=== PATIENT | male | born 1960 | race Caucasian/White ===

== ENCOUNTER 2017-09-03 05:51 | Observation (INO) | payer BC ==
[2017-09-03 06:23] LABS: Basophils % (A) 1 %; Eosinophils # (A) 0.2 k/uL (0-0.7); Eosinophils % (A) 4 %; HCT 33.9 % (39.0-53.0); Lymphocytes # (A) 0.9 k/uL (1.0-4.8); Lymphocytes % (A) 23 %; MCH 26.5 pg (25.0-35.0); MCHC 32.4 g/dL (31.0-37.0); MCV 81.7 fL (80.0-100.0); Mean Platelet Volume 6.5; Monocytes # (A) 0.2 k/uL (0-1.0); Monocytes % (A) 5 %; Neutrophils # (A) 2.7 k/uL (1.3-7.7); Neutrophils % (A) 65 %; Platelet Count 255 k/uL (150-450); RBC 4.16 m/uL (4.30-5.90); RDW 13.3 % (11.5-15.5); WBC 4.1 k/uL (3.8-10.6)
[2017-09-03] MEDS ORDERED: ASPIRIN 81 MG PO STA (06:27)
[2017-09-03] MEDS ORDERED: NITROGLYCERIN SL TABS 0.4 MG TAB SUBLINGUAL STA ×3 (06:27)
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
[2017-09-03 06:39] LABS: Partial Thromboplastin Time 26.6 sec (22.0-30.0); Prothrombin Time 9.7 sec (9.0-12.0)
[2017-09-03 06:42] LABS: Albumin 3.8 g/dL (3.5-5.0); Calcium 9.3 mg/dL (8.4-10.2); Potassium 4.6 mmol/L (3.5-5.1); Total Bilirubin 0.5 mg/dL (0.2-1.3); Total Protein 7.5 g/dL (6.3-8.2)
[2017-09-03 06:45] LABS: Creatine Kinase 129 U/L (55-170)
[2017-09-03 06:51] LABS: D-Dimer 1.95 mg/L FEU (<0.60)
[2017-09-03] MEDS ORDERED: RX INFO: IV CONTRAST WAS GIVEN 1 EACH MISC MISCELLANE PRN (06:52)
[2017-09-03] MEDS ORDERED: SODIUM CHLORIDE 0.9% 500 ML IV STA (06:53)
[2017-09-03 06:58] LABS: Creatine Kinase MB 0.4 ng/mL (0.0-2.4); Troponin I <0.012 ng/mL (0.000-0.034)
--- NOTE | 2017-09-03 07:03 | XR ---
EXAM: XR Chest, 2 Views CLINICAL HISTORY: Reason: difficulty breathing TECHNIQUE: Frontal and lateral views of the chest. COMPARISON: No relevant prior studies available. FINDINGS: Lungs: Unremarkable. No consolidation. Pleural space: Left lower lung pleural based density not well evaluated on the lateral view, possible small pleural effusion. No pneumothorax. Heart: Unremarkable. No cardiomegaly. Mediastinum: Unremarkable. Bones/joints: Unremarkable. IMPRESSION: Left lower lung pleural based density not well evaluated on the lateral view, possible small pleural effusion.
--- NOTE | 2017-09-03 08:07 | CT ---
EXAMINATION TYPE: CT angio chest DATE OF EXAM: 09/03/2017 COMPARISON: Radiograph same day HISTORY: 57-year-old male SOB, back pain, elevated d dimer TECHNIQUE: Contiguous axial scanning of the chest performed with IV Contrast, patient injected with 1 00 mL of Isovue 370. Coronal/sagittal MIP reconstructions performed. CT DLP: 954.9 mGycm Automated exposure control for dose reduction was used. FINDINGS: Heart upper limits of normal in size with trace anterior basilar pericardial fluid. Ectatic ascending aorta at 3.7 cm. Conventional arch vessel branching anatomy. Large caliber to the main right and left pulmonary artery segment 2.8 and 2.5 cm, respectively, sugge sting underlying pulmonary arterial hypertension. There is suboptimal contrast bolus for assessment o f pulmonary embolus. No large central pulmonary embolus. Lobar and more distal arterial branches are nondiagnostic and emboli in these locations cannot be excluded on the basis of this exam No flattening of the interventricular septum or reflux of contrast into the hepatic veins. Scattered prominent but nonenlarged mediastinal lymph nodes measuring up to 9 mm in the prevascular s pace. Trace left pleural effusion. Mild diffuse bronchial wall thickening. No consolidation. Surgical clips just below the GE junction. Bones: Mild endplate spondylosis lower thoracic spine. No osseous destructive process. IMPRESSION: 1. SUBOPTIMAL CONTRAST BOLUS. NO LARGE CENTRAL PULMONARY EMBOLUS. ASSESSMENT OF THE LOBAR MORE DISTAL ARTERIAL BRANCHES IS NONDIAGNOSTIC AND EMBOLI IN THESE LOCATIONS CANNOT BE EXCLUDED ON THE BASIS OF THIS EXAM. 2. DIFFUSE BRONCHIAL WALL THICKENING SUGGESTING BRONCHITIS OR ASTHMA. HOWEVER, GIVEN ADDITIONAL TRACE LEFT EFFUSION, BORDERLINE HEART SIZE, AND PULMONARY ARTERIAL HYPERTENSION, CORRELATE TO EXCLUDE MILD CHF.
[2017-09-03] MEDS ORDERED: NITROGLYCERIN SL TABS 0.4 MG TAB SUBLINGUAL PRN (08:22)
[2017-09-03] MEDS ORDERED: HEPARIN SODIUM,PORCINE 5,000 UNIT/ML 1 ML VIAL IV ONE (08:23)
[2017-09-03] MEDS ORDERED: HEPARIN SOD,PORK IN 0.45% NACL 25,000 UNIT in 0.45% NACL 1 500ML.BAG IV SCH (08:30)
[2017-09-03] MEDS ORDERED: NITROGLYCERIN OINT 1 INCH/GM PACKET TOPICAL SCH (12:00)
[2017-09-03 13:25] LABS: Creatine Kinase 107 U/L (55-170)
[2017-09-03 13:38] LABS: Creatine Kinase MB 0.3 ng/mL (0.0-2.4); Troponin I <0.012 ng/mL (0.000-0.034)
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
--- NOTE | 2017-09-03 16:28 | ECHOF ---
Referral Reason:cp MEASUREMENTS -------- HEIGHT: 165.1 cm WEIGHT: 158.8 kg BP: 139/79 RVIDd: 3.0 cm (< 3.3) IVSd: 1.5 cm (0.6 - 1.1) LVIDd: 4.3 cm (3.9 - 5.3) LVPWd: 1.3 cm (0.6 - 1.1) IVSs: 1.6 cm LVIDs: 3.0 cm LVPWs: 1.5 cm LA Diam: 3.2 cm (2.7 - 3.8) Ao Diam: 3.4 cm (2.0 - 3.7) AV Cusp: 2.1 cm (1.5 - 2.6) LA Diam: 3.6 cm (2.7 - 3.8) MV EXCURSION: 14.924 mm (> 18.000) MV EF SLOPE: 58 mm/s (70 - 150) EPSS: 0.4 cm MV E Zain: 0.60 m/s MV DecT: 251 ms MV A Zain: 0.76 m/s MV E/A Ratio: 0.80 RAP: 5.00 mmHg RVSP: 24.93 mmHg FINDINGS -------- Sinus rhythm. Morbid Obesity This was a techncally difficult study with suboptimal views, , Lumason utilized for enhancement of im ages. The left ventricular size is normal. There is moderate concentric left ventricular hypertrophy. O verall left ventricular systolic function is normal with, an EF between 55 - 60 %. The right ventricle is normal in size. The right atrial size is normal. 5.0mg OF Lumason UTLIZED: 2 OR MORE WALL SEGMENTS NOT VISUALIZED. The aortic valve is trileaflet, and appears structurally normal. No aortic stenosis or regurgitation. Mild mitral regurgitation is present. Mild tricuspid regurgitation present. There is no evidence of pulmonary hypertension. The right v entricular systolic pressure, as measured by Doppler, is 24.93mmHg. The pulmonic valve was not well visualized. The aortic root size is normal. There is no pericardial effusion. CONCLUSIONS -------- 1. Morbid Obesity 2. This was a techncally difficult study with suboptimal views, , Lumason utilized for enhancement of images. 3. The left ventricular size is normal. 4. There is moderate concentric left ventricular hypertrophy. 5. Overall left ventricular systolic function is normal with, an EF between 55 - 60 %. 6. 5.0mg OF Lumason UTLIZED: 2 OR MORE WALL SEGMENTS NOT VISUALIZED. 7. The aortic valve is trileaflet, and appears structurally normal. No aortic stenosis or regurgitati on. 8. Mild mitral regurgitation is present. 9. Mild tricuspid regurgitation present. 10. There is no evidence of pulmonary hypertension. 11. The right ventricular systolic pressure, as measured by Doppler, is 24.93mmHg. 12. The pulmonic valve was not well visualized. 13. The aortic root size is normal. 14. There is no pericardial effusion. TELEGRAPH SERVICE RATER: Ilsa Nichols RDCS
[2017-09-03 18:51] LABS: Creatine Kinase 109 U/L (55-170)
[2017-09-03 19:04] LABS: Creatine Kinase MB 0.3 ng/mL (0.0-2.4); Troponin I <0.012 ng/mL (0.000-0.034)
[2017-09-03] MEDS ORDERED: MELATONIN 3 MG TABLET PO PRN (21:07)
[2017-09-04 01:25] LABS: Cholesterol 151 mg/dL (<200); HDL Cholesterol 39 mg/dL (40-60); LDL Cholesterol,Calculated 92 mg/dL (0-99); Triglycerides 102 mg/dL (<150)
[2017-09-04] MEDS ORDERED: ASPIRIN 325 MG TAB PO SCH (09:00)
[2017-09-04] MEDS ORDERED: ASPIRIN 81 MG PO SCH (09:00)
--- NOTE | 2017-09-04 10:58 | US ---
EXAMINATION TYPE: US gallbladder DATE OF EXAM: 09/04/2017 COMPARISON: NONE CLINICAL HISTORY: left shoulder pain. EXAM MEASUREMENTS: Liver Length: 19.5 cm CBD: 0.3 cm Right Kidney: 10.9 x 3.8 x 5/3 cm Morbidly obese patient 5'5", 350lbs, technically difficult study. Pancreas: mostly obscured by bowel gas Liver: hepatomegaly, unable to penetrate. Heterogenous hepatic echotexture is most commonly related to hepatic steatosis. This appears at least moderate in degree. This limits evaluation for underlying hepatic masses. Gallbladder: limited visualization, layering sludge Evidence for sonographic Baxter's sign: no CBD: wnl Right Kidney: Inferior pole obscured by overlying bowel gas IMPRESSION: 1. Minimal amount of layering biliary sludge with no evidence of cholelithiasis. No sonographic evide nce of acute cholecystitis. 2. Findings most compatible with hepatic steatosis, appearing at least moderate in degree.
[2017-09-04 12:06] VITALS: BP 146/70; PULSE 75; RESP 16; TEMP 98.5
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
== END 2017-09-04 17:05 | disposition home or self-care (01) ==
LOC: EC 05:51 → 3OBS 08:36
PROVIDERS: ADMIT Family Medicine; ATTEND Family Medicine
DX: R07.89 Other chest pain (principal); N18.9 Chronic kidney disease, unspecified; J98.4 Other disorders of lung; R79.89 Other specified abnormal findings of blood chemistry; F41.9 Anxiety disorder, unspecified; F32.9 Major depressive disorder, single episode, unspecified; E66.01 Morbid (severe) obesity due to excess calories; Z68.43 Body mass index [BMI] 50.0-59.9, adult; Z98.890 Other specified postprocedural states; Z98.84 Bariatric surgery status; Z86.14 Personal history of Methicillin resistant Staphylococcus aureus infection; Z87.820 Personal history of traumatic brain injury; Z87.01 Personal history of pneumonia (recurrent); Z87.09 Personal history of other diseases of the respiratory system; Z80.3 Family history of malignant neoplasm of breast
CPT/HCPCS: 99291 ×2; 96365 ×2; 96366 ×6; 96376 ×2; 36415; 93005; 93306; 85379; 83880; 80061; 80053; 82550; 82553; 83735; 84484; 85025; 85610; 85730; 71046; 76705; 71275; G0378 ×2; J1644 ×2; Q9950; Q9967

== ENCOUNTER 2017-09-22 09:06 | Day surgery (SDC) | payer BC ==
[2017-09-18 11:53] VITALS: BMI 59.1
[~2017-09-22 09:06] MED LIST: DEXAMETHASONE SOD PHOSPHATE 10 MG/ML 1 ML VIAL IV ONE; HEPARIN SODIUM,PORCINE 5,000 UNIT/ML 1 ML VIAL SQ ONE; LACTATED RINGERS 1,000 ML IV SCH; LIDOCAINE 1% 20 ML VIAL (10MG/ML) FOR IV START INTRADERMA PRN; MIDAZOLAM 2 MG/2 ML VIAL IV PRN; ONDANSETRON 4 MG/2 ML VIAL IVP ONE
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
[2017-09-22] MEDS ORDERED: fentaNYL (PF) 50 MCG/ML 2 ML AMP ONE (11:33)
[2017-09-22] MEDS ORDERED: SUCCINYLCHOLINE CHLORIDE VIAL 200 MG/10 ML VIAL IV ONE (11:33)
[2017-09-22] MEDS ORDERED: NEOSTIGMINE 1 MG/ML 10 ML VIAL ONE (11:33)
[2017-09-22] MEDS ORDERED: LIDOCAINE 1% INJ 10MG/ML (20 ML MDV) ONE (11:33)
[2017-09-22] MEDS ORDERED: ROCURONIUM BROMIDE 10 MG/ML 10 ML VIAL IV ONE (11:33)
[2017-09-22] MEDS ORDERED: ONDANSETRON 4 MG/2 ML VIAL ONE (11:33)
[2017-09-22] MEDS ORDERED: HYDROmorphone (PF) 1 MG/ML ONE (11:33)
[2017-09-22] MEDS ORDERED: PROPOFOL 10 MG/ML 20 ML VIAL IV ONE (11:33)
[2017-09-22] MEDS ORDERED: MIDAZOLAM 2 MG/2 ML VIAL ONE (11:33)
[2017-09-22] MEDS ORDERED: GLYCOPYRROLATE 0.2 MG/ML 2 ML VIAL ONE (11:33)
[2017-09-22] MEDS ORDERED: BUPIVACAINE (PF) 0.25% 30 ML VIAL SQ ONE ×2 (11:55)
--- NOTE | 2017-09-22 12:45 | P.OP ---
Date of Procedure: 09/22/17 Preoperative Diagnosis: Cholecystolithiasis Postoperative Diagnosis: Cholelithiasis Procedure(s) Performed: Cholecystectomy laparoscopic Anesthesia: DICK Surgeon: Josafat Johnson Estimated Blood Loss (ml): 25 Pathology: other (Gallbladder) Condition: stable Disposition: PACU Description of Procedure: The patient was placed on the operating table. The patient received a general endotracheal tube anesthesia. The patients abdomen was prepped and draped in the usual sterile fashion. Through an infraumbilical stab incision, the fascia of the anterior abdominal wall was grasped with a pair of Kochers and then the Veress needle was placed in the peritoneal cavity. Position of the Veress needle was confirmed with positive drop test. The abdomen was then insufflated. After adequate insufflation, the 10 mm trocar was placed in the peritoneal cavity. Following this the laparoscope was placed in the peritoneal cavity. The patient was placed in the head-up, right side up position and then a 5 mm trocar was placed in the right lateral and right subcostal position under direct visualization. A 8 mm trocar was placed in the epigastric position. The gallbladder was grasped in the fundus and infundibulum. Traction on the gallbladder was placed in the lateral and the cephalad positions. The triangle of Calot was visualized.. The cystic duct was bluntly dissected until the union of the cystic duct and common bile duct was seen. The cystic duct was then divided and sealed with the Harmonic scissors. A PDS Endoloop was then placed throughout the cystic duct stump. The cystic artery divided and sealed with the Harmonic scissors. The gallbladder was then removed from the liver bed using Harmonic scissors. The gallbladder was then extracted through the epigastric port site. Operative field was checked for any bleeding spots and Harmonic scissors was used to coagulate the liver bed. The abdomen was irrigated. The trocars were removed. The skin was closed using interrupted 3-0 Vicryl suture. Dermabond dressing were applied. The patient tolerated the procedure well.
[2017-09-22 12:48] VITALS: TEMP 97.1
[2017-09-22] MEDS: MORPHINE SULFATE 4 MG/ML SYRINGE IV PRN ×2 (12:51→13:05)
[2017-09-22 13:42] VITALS: RESP 16
[2017-09-22] MEDS ORDERED: HYDROcodone/APAP 7.5-325MG 1 EACH TAB PO ONE (14:10)
[2017-09-22 14:31] VITALS: BP 121/82; PULSE 61
== END 2017-09-22 14:51 | disposition home or self-care (01) ==
LOC: OR 09:06
PROVIDERS: ATTEND Surgery
DX: K80.12 Calculus of gallbladder with acute and chronic cholecystitis without obstruction (principal); J98.4 Other disorders of lung; M21.372 Foot drop, left foot; Z86.14 Personal history of Methicillin resistant Staphylococcus aureus infection; Z98.84 Bariatric surgery status; E66.01 Morbid (severe) obesity due to excess calories; Z68.43 Body mass index [BMI] 50.0-59.9, adult
CPT/HCPCS: 88304; 47562; J2250; J0330; J2270; J1644; J1100; J2710; J0690; J2405; J2001; J3010; J1170; J2704

== ENCOUNTER → 2019-09-20 | Outpatient (CLI) | payer BC ==
--- NOTE | 2019-09-20 10:39 | XR ---
EXAMINATION TYPE: XR chest 2V DATE OF EXAM: 09/20/2019 COMPARISON: 09/03/2017 HISTORY: Cough and shortness of breath for approximately 5 months with no improvement TECHNIQUE: Frontal and lateral views of the chest are obtained. FINDINGS: There is no focal air space opacity, pleural effusion, or pneumothorax seen. There is mil d right hemidiaphragm elevation as seen on the prior. Subtle peribronchial cuffing on the lateral vie w. The cardiac silhouette size is within normal limits. The osseous structures are intact. IMPRESSION: 1. Subtle peribronchial cuffing on the lateral view could relate to reactive airway disease as discus sed on the prior CT of 09/03/2017. 2. Minimal right hemidiaphragm elevation could relate to underlying hepatomegaly or diaphragmatic par esis. If there is further concern sniff test could be performed.
== END | disposition home or self-care (01) ==
LOC: RADXRMAIN 09:26
PROVIDERS: ATTEND Family Medicine
DX: J98.6 Disorders of diaphragm (principal)
CPT/HCPCS: 71046

== ENCOUNTER → 2019-09-20 | Outpatient (CLI) | payer BC | END | disposition home or self-care (01) | LOC: LABWHC1 07:56 | PROVIDERS: ATTEND Family Medicine | DX: R06.02 Shortness of breath (principal); R05 Cough | CPT/HCPCS: 87635 ==

== ENCOUNTER 2019-12-15 18:21 | Emergency (ER) | payer BC ==
[2019-12-15] MEDS ORDERED: KETOROLAC 15 MG/ML 1 ML VIAL IM STA (19:15)
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
--- NOTE | 2019-12-15 19:33 | XR ---
EXAMINATION TYPE: XR Hip Complete RT DATE OF EXAM: 12/15/2019 CLINICAL HISTORY: Pain. TECHNIQUE: AP and frogleg views of the right hip are obtained. COMPARISON: CT pelvis October 03, 2015. FINDINGS: There is no acute fracture/dislocation evident in the right hip. [id number] axial lenka int space loss right hip without significant spurring redemonstrated. The overlying soft tissue appe ars unremarkable. IMPRESSION: As above.
--- NOTE | 2019-12-15 19:35 | XR ---
EXAMINATION TYPE: XR lumbar spine 2 or 3V DATE OF EXAM: 12/15/2019 CLINICAL HISTORY: Low back pain. TECHNIQUE: Frontal and lateral images of the lumbar spine are obtained. COMPARISON: CT abdomen and pelvis from 2016. FINDINGS: There are 5 lumbar type vertebral bodies redemonstrated. The lumbar spine redemonstrates satisfactory alignment without evidence of acute fracture or dislocation. Vertebral body heights evy in within normal limits. Persistent mild to moderate multilevel disc space narrowing and mild multile mau anterior spurring. The overlying soft tissue appears unremarkable. IMPRESSION: As above.
[2019-12-15] MEDS ORDERED: ACET/COD 300 MG/30 MG STARTER PACK 6 TAB BTL PO STA (20:10)
[2019-12-15 20:30] VITALS: BP 139/62; PULSE 85; RESP 18; TEMP 98.2
== END 2019-12-15 20:37 | disposition home or self-care (01) ==
LOC: EC 18:21
DX: M54.16 Radiculopathy, lumbar region (principal); Z86.14 Personal history of Methicillin resistant Staphylococcus aureus infection
CPT/HCPCS: 72100; 73502; 96372; 99283; J1885

== ENCOUNTER 2024-05-18 09:42 | Emergency (ER) | payer MEDICARE, OTHER ==
[2024-05-18 09:48] VITALS: TEMP 97.7
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
[2024-05-18] MEDS: SODIUM CHLORIDE 0.9% 500 ML 500 ML IV STA (10:11)
[2024-05-18 10:13] VITALS: RESP 20
[2024-05-18 10:24] LABS: Basophils % (A) 0 %; Eosinophils # (A) 0.1 k/uL (0-0.7); Eosinophils % (A) 1 %; HCT 34.5 % (39.0-53.0); HGB 10.7 gm/dL (13.0-17.5); Hypochromasia Moderate; Lymphocytes # (A) 1.2 k/uL (1.0-4.8); Lymphocytes % (A) 12 %; MCH 25.5 pg (25.0-35.0); MCHC 30.9 g/dL (31.0-37.0); MCV 82.5 fL (80.0-100.0); Mean Platelet Volume 6.2; Monocytes # (A) 0.3 k/uL (0-1.0); Monocytes % (A) 3 %; Neutrophils % (A) 82 %; Platelet Count 365 k/uL (150-450); RBC 4.18 m/uL (4.30-5.90); RDW 13.7 % (11.5-15.5); WBC 9.6 k/uL (3.8-10.6)
--- NOTE | 2024-05-18 10:34 | XR ---
EXAMINATION TYPE: XR chest 2V DATE OF EXAM: 05/18/2024 10:23 AM COMPARISON: Chest radiographs from 09/20/2019 CLINICAL INDICATION: Male, 63 years old with history of difficulty breathing; [facility] TECHNIQUE: XR chest 2V Frontal and lateral views of the chest. FINDINGS: Lungs/Pleura: There is no evidence of pleural effusion, focal consolidation, or pneumothorax. Pulmonary vascularity: Unremarkable. Heart/mediastinum: Cardiomediastinal silhouette is unremarkable. Musculoskeletal: No acute osseous pathology. IMPRESSION: No acute cardiopulmonary disease/process. [facility], , 05/18/2024 10:31 AM
[2024-05-18 10:35] LABS: Partial Thromboplastin Time 26.4 sec (22.0-30.0); Prothrombin Time 11.5 sec (10.0-12.5)
[2024-05-18 10:44] LABS: ALT 15 U/L (4-49); AST 16 U/L (17-59); African American GFR (CKD) 58 (>60 ml/min/1.73 sqM); Albumin 3.6 g/dL (3.5-5.0); Alkaline Phosphatase 120 U/L (38-126); Anion Gap 10 mmol/L; Blood Urea Nitrogen 22 mg/dL (9-20); Calcium 9.1 mg/dL (8.4-10.2); Carbon Dioxide 29 mmol/L (22-30); Chloride 101 mmol/L (98-107); Glucose 126 mg/dL (74-99); Non-African American GFR(CKD) 51 (>60 ml/min/1.73 sqM); Potassium 4.2 mmol/L (3.5-5.1); Sodium 140 mmol/L (137-145); Total Bilirubin 0.5 mg/dL (0.2-1.3); Total Protein 7.3 g/dL (6.3-8.2)
[2024-05-18 10:51] LABS: NT-Pro-B-Type Natriuretic Pept 495 pg/mL
[2024-05-18] MEDS: IPRATROPIUM-ALBUTEROL 3 ML NEB INHALATION STA (11:04)
[2024-05-18] MEDS: methylPREDNISolone SOD SUCCI 125 MG/2 ML VIAL IV STA (11:10)
[2024-05-18 12:32] VITALS: BP 130/89; PULSE 86
== END 2024-05-18 12:33 | disposition home or self-care (01) ==
LOC: EC 09:42
DX: J20.9 Acute bronchitis, unspecified (principal)
CPT/HCPCS: 36415; 94640; 93005; 83880; 80053; 83605; 84484; 85025; 85610; 85730; 87636; 71046; 99285; 96374; 96361; J2919

== ENCOUNTER 2024-07-05 10:38 | Inpatient (IN) | payer MEDICARE, OTHER ==
--- NOTE | 2024-07-05 11:35 | XR ---
EXAMINATION TYPE: XR chest 2V DATE OF EXAM: 07/05/2024 11:30 AM COMPARISON: None. CLINICAL INDICATION: Male, 64 years old with history of difficulty breathing: Shortness of breath TECHNIQUE: XR chest 2V views of the chest are obtained. FINDINGS: Scattered senescent parenchymal changes noted. Hyperinflation compatible with COPD. No evidence for infiltrate. No evidence for atelectasis. Heart size is stable. Mediastinal structures are stable and grossly unremarkable. No evidence for hilar prominence. Degenerative changes dorsal spine. IMPRESSION: 1. No evidence for acute pulmonary disease. [facility], , 07/05/2024 11:33 AM
[2024-07-05 11:43] LABS: Partial Thromboplastin Time 26.4 sec (22.0-30.0); Prothrombin Time 11.2 sec (10.0-12.5)
[2024-07-05 11:58] LABS: ALT 13 U/L (4-49); AST 18 U/L (17-59); African American GFR (CKD) 77 (>60 ml/min/1.73 sqM); Albumin 3.4 g/dL (3.5-5.0); Alkaline Phosphatase 95 U/L (38-126); Anion Gap 8 mmol/L; Blood Urea Nitrogen 20 mg/dL (9-20); Carbon Dioxide 28 mmol/L (22-30); Chloride 100 mmol/L (98-107); Glucose 94 mg/dL (74-99); Non-African American GFR(CKD) 67 (>60 ml/min/1.73 sqM); Potassium 4.3 mmol/L (3.5-5.1); Sodium 136 mmol/L (137-145); Total Bilirubin 0.8 mg/dL (0.2-1.3)
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
[2024-07-05 12:05] LABS: NT-Pro-B-Type Natriuretic Pept 1890 pg/mL
[2024-07-05 12:10] LABS: Anisocytosis Slight; Basophils % (A) 0 %; Eosinophils # (A) 0.3 k/uL (0-0.7); Eosinophils % (A) 3 %; HGB 10.2 gm/dL (13.0-17.5); Hypochromasia Marked; Lymphocytes % (A) 12 %; MCH 25.1 pg (25.0-35.0); MCHC 30.1 g/dL (31.0-37.0); MCV 83.4 fL (80.0-100.0); Mean Platelet Volume 6.1; Monocytes # (A) 0.3 k/uL (0-1.0); Monocytes % (A) 3 %; Neutrophils % (A) 80 %; Platelet Count 304 k/uL (150-450); RBC 4.08 m/uL (4.30-5.90); RDW 16.1 % (11.5-15.5); WBC 8.7 k/uL (3.8-10.6)
--- NOTE | 2024-07-05 12:48 | CT ---
EXAMINATION TYPE: CT chest angio for PE CT DLP: 833.2 mGycm, Automated exposure control for dose reduction was used. DATE OF EXAM: 07/05/2024 12:38 PM COMPARISON: Chest radiograph from same day. CTA chest 09/03/2017 CLINICAL INDICATION:Male, 64 years old with history of sob; SOB, cough and elevated d-dimer. TECHNIQUE/CONTRAST: CTA scan of the thorax is performed with IV Contrast, patient injected with 80ml mL of Isovue 370, pu lmonary embolism protocol. MIP images are created and reviewed. FINDINGS: Pulmonary Artery: There is no evidence for a filling defect within the pulmonary vasculature to sugge st acute pulmonary embolism. The pulmonary artery is dilated measuring 3.8 cm in diameter. Lungs/Pleura: No evidence of focal consolidation, pleural effusion or pneumothorax. Diffuse mosaic at tenuation throughout the lungs. Airway: Large airways are patent. Heart: Mild cardiomegaly. No pericardial effusion. Vasculature: No evidence of aortic aneurysm. Mediastinum: Enlarged mediastinal lymph nodes including a right paratracheal lymph node measuring up to 2.3 cm and a subcarinal lymph node measuring up to 1.5 cm. Musculoskeletal: No acute osseous abnormalities. Mild multilevel degenerative disc disease. Grade 1 a nterolisthesis of T2 on T3. Soft Tissues: Unremarkable. Lower neck: No significant findings. Upper Abdomen: Gallbladder is surgical absent. Postsurgical changes at the GE junction with surgical clips identified. Enlarged spleen measuring at least 15.3 cm in CC dimension. IMPRESSION: 1. No evidence of pulmonary embolism. 2. Dilatation of the pulmonary arteries with diffuse mosaic attenuation and cardiomegaly suggesting p ulmonary hypertension. Other etiologies include an atypical pulmonary infection. 3. Mediastinal lymphadenopathy possibly secondary to #2. 4. Splenomegaly. [facility], , 07/05/2024 12:45 PM
[2024-07-05] MEDS ORDERED: PNEUMONIA PROTOCOL UTILIZED 1 EACH MISC PO PRN (13:52)
[2024-07-05] MEDS ORDERED: IPRATROPIUM-ALBUTEROL 3 ML NEB INHALATION PRN (13:52)
[2024-07-05] MEDS: AZITHROMYCIN 500 MG in SODIUM CHLORIDE 0.9% 250 ML IVPB STA (14:39)
[2024-07-05 14:50] LABS: Influenza A Not Detected (Not Detectd); Influenza B Not Detected (Not Detectd); RSV Not Detected (Not Detectd)
[2024-07-05] MEDS: IPRATROPIUM-ALBUTEROL 3 ML NEB INHALATION SCH (16:49)
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
[2024-07-06] MEDS: FUROSEMIDE 10 MG/ML 2 ML VIAL IV ONE (05:33)
[2024-07-06] MEDS: NYSTATIN 100,000 UNIT/GM POWD 15 GM TOPICAL SCH (08:45)
[2024-07-06] MEDS: AZITHROMYCIN 500 MG in SODIUM CHLORIDE 0.9% 250 ML IVPB SCH (09:20)
[2024-07-06] MEDS: PANTOPRAZOLE 40 MG/10 ML VIAL IVP SCH (09:21)
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
--- NOTE | 2024-07-06 18:17 | CA ---
Transthoracic Echo Report Name: Sukhjinder Hutchison Age: 64 Gender: M : 1960 Exam Date: 07/06/2024 15:07 Exam Location: [facility] Ht (in): 65 Wt (lb): 350 Ordering Physician: Wesly Moreira Attending/Referring Phys: Manager In Home Bella Bishop RDCS Procedure CPT: Indications: evaluate LV function Cardiac Hx: Technical Quality: Technically difficult study Contrast 1: Definity Total Dose (mL): 2 Contrast 2: Total Dose (mL): MEASUREMENTS (Male / Female) Normal Values 2D ECHO LV Diastolic Diameter PLAX 4.5 cm 4.2 - 5.9 / 3.9 - 5.3 cm LV Systolic Diameter PLAX 3.0 cm IVS Diastolic Thickness 1.2 cm 0.6 - 1.0 / 0.6 - 0.9 cm LVPW Diastolic Thickness 1.3 cm 0.6 - 1.0 / 0.6 - 0.9 cm LV Relative Wall Thickness 0.5 RV Internal Dim ED PLAX 3.7 cm LA Systolic Diameter LX 3.4 cm 3.0 - 4.0 / 2.7 - 3.8 cm M-MODE Aortic Root Diameter MM 3.4 cm DOPPLER AV Peak Velocity 209.4 cm/s AV Peak Gradient 17.5 mmHg AV Mean Velocity 122.1 cm/s AV Mean Gradient 7.0 mmHg AV Velocity Time Integral 40.6 cm LVOT Peak Velocity 136.9 cm/s LVOT Peak Gradient 7.5 mmHg LVOT Velocity Time Integral 25.2 cm Mitral E Point Velocity 104.1 cm/s Mitral A Point Velocity 131.3 cm/s Mitral E to A Ratio 0.8 MV Deceleration Time 289.6 ms MV E' Velocity 7.2 cm/s Mitral E to MV E' Ratio 14.5 TR Peak Velocity 297.3 cm/s TR Peak Gradient 35.3 mmHg Right Ventricular Systolic Press 45.3 mmHg FINDINGS Left Ventricle Left ventricular ejection fraction is estimated at 55-60 %. Left ventricular cavity size normal.Mildly increased left ventricular wall thickness. Normal left ventricular systolic function with no obvious regional wall motion abnormalities. Right Ventricle Mild right ventricular dilatation. Moderate pulmonary hypertension. Right Atrium Right atrium not well visualized. No right atrial thrombus or mass seen. Left Atrium Normal left atrial size. No left atrial thrombus or mass present. Mitral Valve Mitral valve not well visualized. No mitral stenosis.mild mitral regurgitation. Aortic Valve Trileaflet aortic valve. Thickened aortic valve without stenosis.aortic valve sclerosis. Tricuspid Valve Structurally normal tricuspid valve. Mild tricuspid regurgitation. Pulmonic Valve Pulmonic valve not well visualized. . No pulmonic regurgitation. Pericardium No pericardial effusion. Aorta Normal size aortic root and proximal ascending aorta. CONCLUSIONS Technically difficult study. Definity ECHO contrast used for improved visualization of the endocardial borders (inadequate visualization of two or more contiguous segments). Normal ventricular size and systolic function Mild mitral and tricuspid regurgitation with mild to moderate pulmonary hypertension Previewed by: Dr. Eric Harley MD (Electronically Signed) Final Date: 06 July 2024 18:16
[2024-07-07 07:38] LABS: Basophils % (A) 0 %; Eosinophils # (A) 0.3 k/uL (0-0.7); Eosinophils % (A) 6 %; HCT 32.1 % (39.0-53.0); HGB 9.5 gm/dL (13.0-17.5); Hypochromasia Marked; Lymphocytes # (A) 0.9 k/uL (1.0-4.8); Lymphocytes % (A) 19 %; MCH 25.1 pg (25.0-35.0); MCHC 29.6 g/dL (31.0-37.0); MCV 84.7 fL (80.0-100.0); Mean Platelet Volume 6.1; Monocytes # (A) 0.3 k/uL (0-1.0); Monocytes % (A) 5 %; Neutrophils # (A) 3.2 k/uL (1.3-7.7); Neutrophils % (A) 66 %; Platelet Count 323 k/uL (150-450); RBC 3.79 m/uL (4.30-5.90); RDW 15.9 % (11.5-15.5); WBC 4.9 k/uL (3.8-10.6)
[2024-07-07 08:03] LABS: African American GFR (CKD) 74 (>60 ml/min/1.73 sqM); Anion Gap 7 mmol/L; Blood Urea Nitrogen 19 mg/dL (9-20); Calcium 8.6 mg/dL (8.4-10.2); Carbon Dioxide 31 mmol/L (22-30); Chloride 99 mmol/L (98-107); Glucose 97 mg/dL (74-99); Non-African American GFR(CKD) 64 (>60 ml/min/1.73 sqM); Potassium 4.2 mmol/L (3.5-5.1); Sodium 137 mmol/L (137-145)
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
[2024-07-08] MEDS: LACTATED RINGERS 1,000 ML IV SCH (09:38)
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
[2024-07-08] MEDS ORDERED: NEOSTIGMINE 1 MG/ML 10 ML VIAL ONE (10:13)
[2024-07-08] MEDS ORDERED: SUGAMMADEX SODIUM 100 MG/ML SYR IV ONE (10:13)
[2024-07-08] MEDS ORDERED: MIDAZOLAM 2 MG/2 ML VIAL ONE (10:13)
[2024-07-08] MEDS ORDERED: fentaNYL (PF) 50 MCG/ML 2 ML AMP ONE (10:13)
[2024-07-08] MEDS ORDERED: PROPOFOL 10 MG/ML 20 ML VIAL IV ONE (10:13)
[2024-07-08] MEDS ORDERED: GLYCOPYRROLATE 0.2 MG/ML 2 ML VIAL ONE (10:13)
[2024-07-08] MEDS ORDERED: ROCURONIUM 10 MG/ML (5 ML VIAL) IV ONE (10:13)
[2024-07-08] MEDS ORDERED: LIDOCAINE 1% INJ 10MG/ML (20 ML MDV) ONE (10:13)
[2024-07-08] MEDS ORDERED: SUCCINYLCHOLINE CHLORIDE 200 MG/10 ML VIAL IV ONE (10:13)
[2024-07-08] MEDS: IV FLUID CONTINUATION 1,000 ML IV ONE ×2 (10:13→10:45)
--- NOTE | 2024-07-08 11:08 | FL ---
EXAMINATION TYPE: FL bronchoscopy DATE OF EXAM: 07/08/2024 10:52 AM COMPARISON: Pre Operative Images if available both CT/MRI or plain film CLINICAL INDICATION: Male, 64 years old with history of BRONCHOSCOPY WITH FLUORO; TECHNIQUE: FL bronchoscopy, multiple fluoroscopic images provided for procedure. Total fluoroscopy time: 5.48 seconds Total submitted images to PACS: 6 DAP: [id number] mGym2 Gycm2 uGym2 cGycm2 or equivalent. FINDINGS: ION bronchoscopy images demonstrate bronchoscope terminating in the lung. No immediate complications identified, no pneumothorax identified. IMPRESSION: 1. No evidence for intraoperative complication. 2. Please see the operative/procedural note for further details. [facility], , 07/08/2024 11:06 AM
--- NOTE | 2024-07-08 11:36 | XR ---
EXAMINATION TYPE: XR chest 1V DATE OF EXAM: 07/08/2024 11:22 AM COMPARISON: Chest radiographs from 07/05/2024 CLINICAL INDICATION: Male, 64 years old with history of POST BRONCH; LOCATED [facility]IN [facility] TECHNIQUE: XR chest 1V Frontal view of the chest. FINDINGS: Lungs/Pleura: There is no evidence of pleural effusion, focal consolidation, or pneumothorax. Pulmonary vascularity: Pulmonary vascular congestion. Heart/mediastinum: Cardiomediastinal silhouette is enlarged and stable. Musculoskeletal: No acute osseous pathology. Other findings: None IMPRESSION: Postprocedural changes mild pulmonary edema or pneumothorax. [facility], , 07/08/2024 11:34 AM
--- NOTE | 2024-07-08 11:44 | PCN ---
PROCEDURE NOTE PROCEDURES: Bronchoscopy; airway examination; therapeutic lavage; BAL; multiple transbronchial biopsies, right lower lobe; brushes, right middle lobe; BAL, right middle lobe. PREOPERATIVE DIAGNOSIS: Inflammatory lung disease versus pneumonia. POSTOPERATIVE DIAGNOSIS: Inflammatory lung disease versus pneumonia. OPERATORS: Dr. Weinstein and Dr. Castro. DESCRIPTION OF PROCEDURE: There was informed consent and universal timeout. The patient's procedure was done in room #1 [facility]. Anesthesia provided general anesthesia, the patient's procedure was done with general endotracheal anesthesia (GETA). Again, there was informed consent and universal timeout. After the patient was adequately sedated and under the effects of general anesthesia, the bronchoscope was inserted through the endotracheal tube. The mid to distal trachea appeared normal. We did a thorough evaluation of both lungs, including the right upper lobe and its 3 segments, right middle lobe and its 2 segments, right lower lobe and its 5 segments, left upper lobe proper and its 2 segments, lingula and its 2 segments, and left lower lobe and its 4 segments. The airways were normal. There was no endobronchial mass or tumor. The mucosa appeared normal. Next, under fluoroscopic guidance, we did brushes to the right middle lobe. Next, we did multiple transbronchial and endobronchial biopsies, to the right lower lobe. Finally, we did a BAL in the right middle lobe. The patient tolerated the entire procedure well. There was no immediate complication. There was minimal bleeding. We ensured hemostasis before the bronchoscope was removed. A chest x-ray will be done in the recovery area to rule out pneumothorax. The patient tolerated the procedure well, was stable throughout the procedure. There was no immediate complication. Once recovered, the patient will be taken back to his room. MMODL / IJN: [id number] /
[2024-07-09 04:22] VITALS: RESP 16
[2024-07-09] MEDS: ACETAMINOPHEN TAB 325 MG TAB PO PRN (10:07)
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
[2024-07-09 13:56] VITALS: BP 107/69; PULSE 82; TEMP 98.7
[2024-07-09 17:33] LABS: Appearance,BF Cloudy (Clear); RBC, Body Fluid 420 /UL (0-2000)
[2024-07-12 09:47] LABS: Nucleated Cells, Body Fluid 875 /UL
== END 2024-07-09 17:08 | disposition home health service (06) | DRG 166 ==
LOC: EC 10:38 → 4SSUR 13:55 → 1SOBS 15:29 → 5NMEDONC 07-08 18:55
PROVIDERS: ADMIT Family Medicine; ATTEND Family Medicine
PROC: 0BBF8ZX Excision of Right Lower Lung Lobe, Via Natural or Artificial Opening Endoscopic, Diagnostic (ICD-10-PCS; principal; 2024-07-08 10:00)
PROC: 0B9F8ZZ Drainage of Right Lower Lung Lobe, Via Natural or Artificial Opening Endoscopic (ICD-10-PCS; 2024-07-08 10:00)
PROC: 0B9D8ZZ Drainage of Right Middle Lung Lobe, Via Natural or Artificial Opening Endoscopic (ICD-10-PCS; 2024-07-08 10:00)
DX: J84.116 Cryptogenic organizing pneumonia (principal); J96.21 Acute and chronic respiratory failure with hypoxia; I28.1 Aneurysm of pulmonary artery; Z68.43 Body mass index [BMI] 50.0-59.9, adult; D63.1 Anemia in chronic kidney disease; F32.A Depression, unspecified; I27.20 Pulmonary hypertension, unspecified; E66.01 Morbid (severe) obesity due to excess calories; N18.2 Chronic kidney disease, stage 2 (mild); Z87.01 Personal history of pneumonia (recurrent); Z91.199 Patient's noncompliance with other medical treatment and regimen due to unspecified reason; F41.9 Anxiety disorder, unspecified; G47.33 Obstructive sleep apnea (adult) (pediatric); Z20.822 Contact with and (suspected) exposure to COVID-19; R16.1 Splenomegaly, not elsewhere classified; Z87.09 Personal history of other diseases of the respiratory system; R59.0 Localized enlarged lymph nodes; M21.372 Foot drop, left foot; Z79.899 Other long term (current) drug therapy; Z28.311 Partially vaccinated for COVID-19; Z88.0 Allergy status to penicillin
CPT/HCPCS: 31623; 31624; 31628; 36415; 71045; 71046; 71275; 80048; 80053; 83605; 83880; 84145; 84484; 85025; 85379; 85610; 85730; 87040; 87070; 87102; 87116; 87205; 87206; 87449; 87636; 88104; 88108; 88305; 89050; 93005; 93306; 94640; 94760; 96365; 96366; 96367; 99285

== ENCOUNTER 2024-07-25 15:47 | Observation (INO) | payer MEDICARE, OTHER ==
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
[2024-07-25 16:46] LABS: Basophils # (A) 0.1 k/uL (0-0.2); Basophils % (A) 1 %; Eosinophils # (A) 0.4 k/uL (0-0.7); Eosinophils % (A) 4 %; HCT 31.4 % (39.0-53.0); HGB 9.5 gm/dL (13.0-17.5); Hypochromasia Marked; Lymphocytes # (A) 1.2 k/uL (1.0-4.8); Lymphocytes % (A) 13 %; MCH 24.2 pg (25.0-35.0); MCHC 30.2 g/dL (31.0-37.0); MCV 79.9 fL (80.0-100.0); Mean Platelet Volume 6.5; Monocytes # (A) 0.3 k/uL (0-1.0); Monocytes % (A) 3 %; Neutrophils # (A) 7.2 k/uL (1.3-7.7); Neutrophils % (A) 78 %; Platelet Count 346 k/uL (150-450); RBC 3.93 m/uL (4.30-5.90); RDW 15.5 % (11.5-15.5); WBC 9.2 k/uL (3.8-10.6)
--- NOTE | 2024-07-25 16:49 | XR ---
EXAMINATION TYPE: XR chest 2V DATE OF EXAM: 07/25/2024 4:44 PM COMPARISON: Chest radiographs from 07/08/2024. CLINICAL INDICATION: Male, 64 years old with history of difficulty breathing; [facility] TECHNIQUE: XR chest 2V Frontal and lateral views of the chest. FINDINGS: Lungs/Pleura: Multifocal airspace opacities. No evidence of pneumothorax or pleural effusion. Pulmonary vascularity: Pulmonary vascular congestion. Heart/mediastinum: Cardiomediastinal silhouette is enlarged. Musculoskeletal: No acute osseous pathology. IMPRESSION: Cardiomegaly and mild pulmonary vascular congestion. Correlate with BNP for congestive heart failure. [facility], , 07/25/2024 4:46 PM
[2024-07-25 16:56] LABS: Partial Thromboplastin Time 26.1 sec (22.0-30.0); Prothrombin Time 11.3 sec (10.0-12.5)
[2024-07-25 17:03] LABS: ALT 13 U/L (4-49); AST 22 U/L (17-59); African American GFR (CKD) 79 (>60 ml/min/1.73 sqM); Albumin 3.6 g/dL (3.5-5.0); Alkaline Phosphatase 94 U/L (38-126); Anion Gap 7 mmol/L; Blood Urea Nitrogen 22 mg/dL (9-20); Calcium 9.3 mg/dL (8.4-10.2); Carbon Dioxide 35 mmol/L (22-30); Chloride 93 mmol/L (98-107); Glucose 100 mg/dL (74-99); Magnesium 1.8 mg/dL (1.6-2.3); Non-African American GFR(CKD) 68 (>60 ml/min/1.73 sqM); Potassium 4.5 mmol/L (3.5-5.1); Sodium 135 mmol/L (137-145); Total Bilirubin 0.8 mg/dL (0.2-1.3); Total Protein 7.5 g/dL (6.3-8.2)
[2024-07-25 17:11] LABS: Influenza A Not Detected (Not Detectd); Influenza B Not Detected (Not Detectd); RSV Not Detected (Not Detectd)
[2024-07-25 17:12] LABS: NT-Pro-B-Type Natriuretic Pept 851 pg/mL
[2024-07-25] MEDS: IPRATROPIUM-ALBUTEROL 3 ML NEB INHALATION STA (18:08)
[2024-07-25] MEDS ORDERED: NALOXONE 0.4 MG/ML 1 ML VIAL IVP PRN (18:35)
[2024-07-25] MEDS: methylPREDNISolone SOD SUCCI 125 MG/2 ML VIAL IV STA (20:31)
[2024-07-25] MEDS: IPRATROPIUM-ALBUTEROL 3 ML NEB INHALATION SCH (20:51)
[2024-07-26] MEDS: IPRATROPIUM-ALBUTEROL 3 ML NEB INHALATION PRN (05:46)
[2024-07-26] MEDS: methylPREDNISolone SOD SUCCI 125 MG/2 ML VIAL IV SCH (05:59)
[2024-07-26] MEDS ORDERED: DEXTROSE 50% SYRINGE 50 ML IVP PRN ×2 (07:40)
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
[2024-07-26] MEDS: HEPARIN SODIUM,PORCINE 5,000 UNIT/ML 1 ML VIAL SQ SCH (08:48)
[2024-07-26] MEDS: FAMOTIDINE 20 MG/2 ML VIAL IV SCH (08:49)
[2024-07-26] MEDS: FUROSEMIDE 10 MG/ML 4 ML VIAL IV SCH (08:52)
[2024-07-26] MEDS: ALPRAZolam 0.5 MG TAB PO STA (10:56)
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
[2024-07-26 12:24] LABS: Glucose,Whole Blood 163 mg/dL (70-110)
[2024-07-26] MEDS: INSULIN LISPRO (HumaLOG) 100 UNIT/ML 10 mL VL SQ SCH (13:19)
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
[2024-07-26 17:09] LABS: Glucose,Whole Blood 165 mg/dL (70-110)
[2024-07-26] MEDS ORDERED: methylPREDNISolone SOD SUCCI 125 MG/2 ML VIAL IV SCH (18:45)
[2024-07-26 20:37] LABS: Glucose,Whole Blood 158 mg/dL (70-110)
[2024-07-27 05:59] LABS: Glucose,Whole Blood 131 mg/dL (70-110)
[2024-07-27 08:49] LABS: BUN/Creat Ratio 20.13 Ratio (12.00-20.00); Blood Urea Nitrogen 30.2 mg/dL (9.0-27.0); Calcium 9.5 mg/dL (8.7-10.3); Carbon Dioxide 30.7 mmol/L (21.6-31.8); Chloride 97 mmol/L (96-109); Glucose 138 mg/dL (70-110); Potassium 4.5 mmol/L (3.5-5.5); Sodium 139 mmol/L (135-145)
[2024-07-27 08:50] LABS: HCT 31.1 % (39.6-50.0); MCH 24.3 pg (27.0-32.0); MCHC 28.9 g/dL (32.0-37.0); MCV 84.1 FL (80.0-97.0); Mean Platelet Volume 8.5 FL (9.5-12.2); NRBC Per 100 WBC 0 X 10*3/uL (0.00-0.01); Platelet Count 326 X 10*3/uL (140-440); RDW 15.7 % (11.5-14.5); WBC 8.16 X 10*3/uL (4.50-10.00)
[2024-07-27 08:51] LABS: Basophils # (A) 0.01 X 10*3/uL (0.00-0.10); Basophils % (A) 0.1 %; Eosinophils # (A) 0 X 10*3/uL (0.04-0.35); Eosinophils % (A) 0 %; Lymphocytes # (A) 0.66 X 10*3/uL (0.90-5.00); Lymphocytes % (A) 8.1 %; Monocytes # (A) 0.08 X 10*3/uL (0.20-1.00); Neutrophils # (A) 7.37 X 10*3/uL (1.80-7.70); Neutrophils % (A) 90.3 %
--- NOTE | 2024-07-27 09:35 | P.PN ---
Subjective HISTORY OF PRESENT ILLNESS: This is a 64-year-old male with a past medical history significant for restrictive lung disease and morbid obesity. Patient used to follow in the office with Dr. Rojas but has not been seen since 2020. We have been asked to see the patient in consultation for congestive heart failure. Patient examined at the bedside. Patient was recently admitted to the hospital for possible pneumonia. Patient underwent bronchoscopy on 07/09/2023 with lavage and biopsy by Dr. Weinstein. Cytology reveals acute inflammatory cells with microbiologist and reactive bronchial lining cells. No malignant cells identified. Patient presen pipe back to the hospital with worsening shortness of breath. Patient also complains of a cough with green sputum production. Denies any chest pain or pressure. DIAGNOSTICS: - EKG reveals sinus mechanism with no signs of acute ischemia. - Chest xray cardiomegaly mild pulmonary vascular congestion. - Laboratory data: WBC 9.2. Hemoglobin 9.5. Platelet count 346. Sodium 135. Potassium 4.5. BUN 22. Creatinine 1.13. Magnesium 1.8. - Current home cardiac medications include none. - Most recent echocardiogram obtained on 07/06/2024 revealed ejection fraction 55 to 60%, no obvious regional wall motion abnormalities, moderate pulmonary hypertension, mild mitral regurgitation, mild tricuspid regurgitation - Patient underwent stress testing in 2019 which was negative for ischemia 07/27/2024 Patient examined this morning to bedside. Patient without complaints of chest pain or pressure. He reports improvement in shortness of breath. Vital signs are stable. PHYSICAL EXAM: VITAL SIGNS: Reviewed. GENERAL: Well-developed in no acute distress. HEENT: Head is normocephalic. Pupils are equal, round. Sclerae anicteric. Mucous membranes of the mouth are moist. Neck supple. No JVD or thyromegaly LUNGS: Respirations even and unlabored. Lungs diminished bilaterally HEART: Regular rate and rhythm. S1 and S2 heard. ABDOMEN: Soft. Nondistended. Nontender. EXTREMITIES: Normal range of motion. No clubbing or cyanosis. Peripheral pulses intact. Trace bilateral lower extremity edema NEUROLOGIC: Awake and alert. Oriented x 3. ASSESSMENT: Shortness of breath Recent hospitalization for acute respiratory failure Status post bronchoscopy 07/09/2023 Cytology reveals acute inflammatory cells with microbiologist and reactive bronchial lining cells. No malignant cells identified. History of restrictive lung disease No evidence for congestive heart failure, proBNP within normal limits Morbid obesity: BMI 58.2 PLAN: No need to repeat echocardiogram as this was performed earlier this month Patient symptoms appear to be more pulmonary in etiology and not secondary to congestive heart failure. BNP within normal limits Discontinue IV Lasix. Begin oral Lasix 20 mg daily Further recommendations pending patient course Nurse practitioner note has been reviewed by physician. Signing provider agrees with the documented findings, assessment, and plan of care documented by HOG STOMACH PREPARER as a scribe. Objective - Vital Signs Vital signs: Vital Signs Temp 98.4 F 07/27/24 00:36 Pulse 80 07/27/24 08:25 Resp 18 07/27/24 00:36 BP 132/69 07/27/24 00:36 Pulse Ox 91 L 07/27/24 08:14 FiO2 Intake & Output 07/26/24 07/27/24 07/27/24 18:59 06:59 18:59 Output Total 300 Balance -300 Weight 158.757 kg 154 kg Output: Urine 300 Other: Voiding Method Toilet - Labs CBC & Chem 7: 07/27/24 05:08 07/27/24 05:08 Labs: Abnormal Lab Results - Last 24 Hours (Table) 07/26/24 07/26/24 07/26/24 Range/Units 12:22 17:08 20:34 RBC (4.40-5.60) X 10*6/uL Hgb (13.0-17.0) g/dL Hct (39.6-50.0) % MCH (27.0-32.0) pg MCHC (32.0-37.0) g/dL RDW (11.5-14.5) % MPV (9.5-12.2) FL Lymphocytes # (0.90-5.00) X 10*3/uL Monocytes # (0.20-1.00) X 10*3/uL Eosinophils # (0.04-0.35) X 10*3/uL BUN (9.0-27.0) mg/dL Est GFR (CKD-EPI) (>=60) BUN/Creatinine Ratio (12.00-20.00) Ratio Glucose (70-110) mg/dL POC Glucose (mg/dL) 163 H 165 H 158 H (70-110) mg/dL 03/25/25 03/25/25 03/25/25 Range/Units 05:08 05:08 05:58 RBC 3.70 L (4.40-5.60) X 10*6/uL Hgb 9.0 L (13.0-17.0) g/dL Hct 31.1 L (39.6-50.0) % MCH 24.3 L (27.0-32.0) pg MCHC 28.9 L (32.0-37.0) g/dL RDW 15.7 H (11.5-14.5) % MPV 8.5 L (9.5-12.2) FL Lymphocytes # 0.66 L (0.90-5.00) X 10*3/uL Monocytes # 0.08 L (0.20-1.00) X 10*3/uL Eosinophils # 0 L (0.04-0.35) X 10*3/uL BUN 30.2 H (9.0-27.0) mg/dL Est GFR (CKD-EPI) 51 L (>=60) BUN/Creatinine Ratio 20.13 H (12.00-20.00) Ratio Glucose 138 H (70-110) mg/dL POC Glucose (mg/dL) 131 H (70-110) mg/dL
[2024-07-27] MEDS: FUROSEMIDE 10 MG/ML 4 ML VIAL IV SCH (09:46)
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
[2024-07-27 12:51] LABS: Glucose,Whole Blood 138 mg/dL (70-110)
[2024-07-27 17:54] LABS: Glucose,Whole Blood 165 mg/dL (70-110)
[2024-07-27 20:39] LABS: Glucose,Whole Blood 156 mg/dL (70-110)
[2024-07-27] MEDS: ALPRAZolam 0.5 MG TAB PO PRN (21:14)
--- NOTE | 2024-07-27 23:32 | P.PN ---
Subjective This is a pleasant 64 years old male with past medical history of multiple medical problems. PCP Dr. Curtis. Patient presents because of shortness of breath of 1 week duration. Patient was recently discharged from this facility on 07/05-07/09 for possible pneumonia, however antibiotics were discontinued because of negative procalcitonin. He underwent bronchoscopy on 07/08, with therapeutic lavage and multiple transbronchial biopsy: Acute inflammatory cells with macrophages and reactive bronchial lining cells. No malignant cells identified. Patient was discharged on oxygen 2 L/min. He presents with worsening dyspnea and worsening cough and green phlegm. No chest pain. No specific GI/ symptom. He feels tired. He denies any headache dizziness weakness or numbness. He has chronic back left leg He has bilateral lymphedema. Patient vital signs stable, mildly tachypneic he is saturating 92% on 6 L oxygen via nasal cannula He was started on IV Solu-Medrol 60 mg Chest x-ray showing cardiomegaly with pulmonary vascular congestion EKG showing sinus rhythm at [address]-T T, proBNP is elevated 851. Echocardiogram on 07/06/2024: Ejection fraction 55 to 60%. 07/27 Patient sitting in chair fully awake oriented, his breathing quietly He is saturating well on 4 L oxygen via nasal cannula. Patient creatinine increased 1.1 up to 1.5 secondary to diuretic, Lasix switched to oral dose 40 mg daily Also he is on IV Solu-Medrol with plan to switch it to oral prednisone per recommendation of facilities officer. Will start prednisone tomorrow Patient did not feel ready for discharge. Possible discharge in 24 hours if he keeps improvement Objective - Vital Signs Vital signs: Vital Signs Temp 97.7 F 07/27/24 07:00 Pulse 82 07/27/24 11:48 Resp 18 07/27/24 07:00 BP 130/74 07/27/24 07:00 Pulse Ox 91 L 07/27/24 08:14 FiO2 Intake & Output 07/26/24 07/27/24 07/27/24 18:59 06:59 18:59 Intake Total 236 Output Total 300 Balance -300 236 Weight 158.757 kg 154 kg Intake: Oral 236 Output: Urine 300 Other: Voiding Method Toilet - Exam -GENERAL: The patient is alert and oriented x3, not in any acute distress. Well developed, well nourished. Morbidly obese HEENT: Pupils are round and equally reacting to light. EOMI. No scleral icterus. No conjunctival pallor. Normocephalic, atraumatic. No pharyngeal erythema. No thyromegaly. CARDIOVASCULAR: S1 and S2 present. No murmurs, rubs, or gallops. PULMONARY: Chest is clear to auscultation, no wheezing , no crackles. ABDOMEN: Soft, nontender, nondistended, normoactive bowel sounds. No palpable organomegaly. MUSCULOSKELETAL: No joint swelling or deformity. EXTREMITIES: No cyanosis, clubbing, or pedal edema. NEUROLOGICAL: Gross neurological examination did not reveal any focal deficits. SKIN: No rashes. no petechiae. - Labs CBC & Chem 7: 07/27/24 05:08 07/27/24 05:08 Labs: Abnormal Lab Results - Last 24 Hours (Table) 07/26/24 07/26/24 07/26/24 Range/Units 12:22 17:08 20:34 RBC (4.40-5.60) X 10*6/uL Hgb (13.0-17.0) g/dL Hct (39.6-50.0) % MCH (27.0-32.0) pg MCHC (32.0-37.0) g/dL RDW (11.5-14.5) % MPV (9.5-12.2) FL Lymphocytes # (0.90-5.00) X 10*3/uL Monocytes # (0.20-1.00) X 10*3/uL Eosinophils # (0.04-0.35) X 10*3/uL BUN (9.0-27.0) mg/dL Est GFR (CKD-EPI) (>=60) BUN/Creatinine Ratio (12.00-20.00) Ratio Glucose (70-110) mg/dL POC Glucose (mg/dL) 163 H 165 H 158 H (70-110) mg/dL 07/27/24 07/27/24 07/27/24 Range/Units 05:08 05:08 05:58 RBC 3.70 L (4.40-5.60) X 10*6/uL Hgb 9.0 L (13.0-17.0) g/dL Hct 31.1 L (39.6-50.0) % MCH 24.3 L (27.0-32.0) pg MCHC 28.9 L (32.0-37.0) g/dL RDW 15.7 H (11.5-14.5) % MPV 8.5 L (9.5-12.2) FL Lymphocytes # 0.66 L (0.90-5.00) X 10*3/uL Monocytes # 0.08 L (0.20-1.00) X 10*3/uL Eosinophils # 0 L (0.04-0.35) X 10*3/uL BUN 30.2 H (9.0-27.0) mg/dL Est GFR (CKD-EPI) 51 L (>=60) BUN/Creatinine Ratio 20.13 H (12.00-20.00) Ratio Glucose 138 H (70-110) mg/dL POC Glucose (mg/dL) 131 H (70-110) mg/dL Assessment and Plan Assessment: acute CHF, with preserved ejection fraction, mild and improved Acute COPD exacerbation felt less likely, mild and also improving Acute on chronic hypoxic respiratory failure, this is secondary to above worsened by large body habitus Morbid obesity with BMI of 58.2 Bilateral lower extremity lymphedema Anxiety and depression Plan: Hold Lasix today and start oral dose tomorrow Patient started on steroids, switch to oral prednisone tomorrow per pulmonology team Consult pulmonary and cardiology service Continue with bronchodilator Oxygen therapy Labs and medication were reviewed.. Continue same treatment. Continue with symptomatic treatment. Resume home medication. Monitor labs and vitals. DVT and GI prophylaxis. Further recommendations as per clinical course of the patient DVT prophylaxis: Subcutaneous heparin GI Prophylaxis: Pepcid PT/OT: Pending Prognosis is guarded Possible discharge in 24 to 48 hours
[2024-07-28 06:29] LABS: Glucose,Whole Blood 131 mg/dL (70-110)
--- NOTE | 2024-07-28 09:16 | P.PN ---
Subjective HISTORY OF PRESENT ILLNESS: This is a 64-year-old male with a past medical history significant for restrictive lung disease and morbid obesity. Patient used to follow in the office with Dr. Rojas but has not been seen since 2020. We have been asked to see the patient in consultation for congestive heart failure. Patient examined at the bedside. Patient was recently admitted to the hospital for possible pneumonia. Patient underwent bronchoscopy on 07/09/2023 with lavage and biopsy by Dr. Weinstein. Cytology reveals acute inflammatory cells with microbiologist and reactive bronchial lining cells. No malignant cells identified. Patient presen pipe back to the hospital with worsening shortness of breath. Patient also complains of a cough with green sputum production. Denies any chest pain or pressure. DIAGNOSTICS: - EKG reveals sinus mechanism with no signs of acute ischemia. - Chest xray cardiomegaly mild pulmonary vascular congestion. - Laboratory data: WBC 9.2. Hemoglobin 9.5. Platelet count 346. Sodium 135. Potassium 4.5. BUN 22. Creatinine 1.13. Magnesium 1.8. - Current home cardiac medications include none. - Most recent echocardiogram obtained on 07/06/2024 revealed ejection fraction 55 to 60%, no obvious regional wall motion abnormalities, moderate pulmonary hypertension, mild mitral regurgitation, mild tricuspid regurgitation - Patient underwent stress testing in 2019 which was negative for ischemia 07/27/2024 Patient examined this morning to bedside. Patient without complaints of chest pain or pressure. He reports improvement in shortness of breath. Vital signs are stable. 07/28/2024 Patient examined this morning the bedside. Patient currently denies chest pain or pressure. He denies shortness of breath this morning at time of examination. Vital signs are stable. PHYSICAL EXAM: VITAL SIGNS: Reviewed. GENERAL: Well-developed in no acute distress. HEENT: Head is normocephalic. Pupils are equal, round. Sclerae anicteric. Mucous membranes of the mouth are moist. Neck supple. No JVD or thyromegaly LUNGS: Respirations even and unlabored. Lungs diminished bilaterally HEART: Regular rate and rhythm. S1 and S2 heard. ABDOMEN: Soft. Nondistended. Nontender. EXTREMITIES: Normal range of motion. No clubbing or cyanosis. Peripheral pulses intact. Trace bilateral lower extremity edema NEUROLOGIC: Awake and alert. Oriented x 3. ASSESSMENT: Shortness of breath Recent hospitalization for acute respiratory failure Status post bronchoscopy 07/09/2023 Cytology reveals acute inflammatory cells with microbiologist and reactive bronchial lining cells. No malignant cells identified. History of restrictive lung disease No evidence for congestive heart failure, proBNP within normal limits Morbid obesity: BMI 58.2 PLAN: No need to repeat echocardiogram as this was performed earlier this month Patient symptoms appear to be more pulmonary in etiology and not secondary to congestive heart failure. BNP within normal limits No further inpatient recommendations from a cardiac standpoint We will sign off. Please reconsult if needed. Will plan for outpatient stress test when patient's acute issues have resolved Patient to follow-up in the office postdischarge Nurse practitioner note has been reviewed by physician. Signing provider agrees with the documented findings, assessment, and plan of care documented by PRICER BAGGER as a scribe. Objective - Vital Signs Vital signs: Vital Signs Temp 97.9 F 07/28/24 02:00 Pulse 89 07/27/24 21:16 Resp 17 07/28/24 02:00 BP 117/65 07/28/24 02:00 Pulse Ox 96 07/28/24 02:00 FiO2 Intake & Output 07/27/24 07/28/24 07/28/24 18:59 06:59 18:59 Intake Total 897 Output Total 850 Balance 897 -850 Weight 153.7 kg Intake: Oral 897 Output: Urine 850 Other: Voiding Method Toilet - Labs CBC & Chem 7: 07/27/24 05:08 07/27/24 05:08 Labs: Abnormal Lab Results - Last 24 Hours (Table) 07/27/24 07/27/24 07/27/24 Range/Units 12:46 17:53 20:28 POC Glucose (mg/dL) 138 H 165 H 156 H (70-110) mg/dL 07/28/24 Range/Units 06:27 POC Glucose (mg/dL) 131 H (70-110) mg/dL
[2024-07-28 09:54] VITALS: RESP 16
--- NOTE | 2024-07-28 10:13 | CT ---
INDICATION: Patient age:Male; 64 years old; Reason for study: Dyspnea; PHH. COMPARISON: CTA chest 07/05/2024, 09/03/2017 TECHNIQUE: Multiple thin axial images were obtained through the chest at selected intervals. Prone and supine in spiratory along with supine expiratory images were submitted for review. Please note that due to inte rval acquisition images as defined by high-resolution CT protocol the entire lung parenchyma is not e valuated, therefore small nodular densities may not be visualized. Evaluation of vascular structures , viscera and lymphatics is limited due to lack of intravenous contrast administration. One or more C T dose reduction strategies were utilized during this examination. Total DLP 1742.10 mGycm. FINDINGS: LUNGS: There is no evidence of interstitial thickening, honeycombing or architectural distortion in t he lungs. No bronchiectasis. Mild linear scarring within the posterior medial right upper lobe. No ac red devil area of infiltrative or consolidative change. Increased patchy subtle groundglass opacities on th e expiratory phase consistent with air trapping. LARGE AIRWAYS: Central airways are patent. No significant dynamic airway collapse on expiratory imagi ng. PLEURA: No pleural effusion or thickening. HEART AND PERICARDIUM: The heart is mildly enlarged. There is no pericardial effusion. No significant coronary artery calcifications. MEDIASTINUM AND JELLY: Decreased size of mediastinal adenopathy from prior exam. VESSELS: The thoracic aorta is normal in course and caliber. Dilated main pulmonary artery measuring up to 4.0 cm in diameter again. CHEST WALL AND DIAPHRAGM: Normal. LOWER NECK: Normal. UPPER ABDOMEN: Splenomegaly redemonstrated. Gallbladder surgically absent. MUSCULOSKELETAL: No acute fracture. IMPRESSION: 1. No CT evidence for interstitial lung disease. 2. Subtle patchy groundglass opacities which increase in expiratory phase consistent with air trappin g. 3. Dilated main pulmonary artery suggesting pulmonary arterial hypertension. [facility], , 07/28/2024 10:11 AM
[2024-07-28] MEDS: FUROSEMIDE 20 MG TAB PO SCH (10:26)
[2024-07-28] MEDS: predniSONE 20 MG TAB PO SCH (10:26)
[2024-07-28] MEDS: FAMOTIDINE 20 MG/2 ML VIAL IV SCH (10:27)
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
[2024-07-28 12:15] LABS: Glucose,Whole Blood 111 mg/dL (70-110)
[2024-07-28 15:26] VITALS: BP 112/56; PULSE 93; TEMP 98.7
--- NOTE | 2024-07-28 19:56 | P.DS ---
Providers Date of admission: 07/25/24 18:36 Attending physician: Sunny Morales Consults: 07/26/24 07:40 Consult Physician Routine Consulting Provider: Sukhjinder Weinstein Consult Reason/Comments: acute hypoxic resp failure Do you want consulting provider notified?: Yes Primary care physician: Sebastian Curtis Hospital Course: Diagnoses: acute CHF, with preserved ejection fraction, mild and improved Acute COPD exacerbation felt less likely, mild and also improving Acute on chronic hypoxic respiratory failure, this is secondary to above worsened by large body habitus Morbid obesity with BMI of 58.2 Bilateral lower extremity lymphedema Anxiety and depression Hospital course: This is a pleasant 64 years old male with past medical history of multiple medical problems. PCP Dr. Curtis. Patient presents because of shortness of breath of 1 week duration. Patient was recently discharged from this facility on 07/05-07/09 for possible pneumonia, however antibiotics were discontinued because of negative procalcitonin. He underwent bronchoscopy on 07/08, with therapeutic lavage and multiple transbronchial biopsy: Acute inflammatory cells with macrophages and reactive bronchial lining cells. No malignant cells identified. Patient was discharged on oxygen 2 L/min. He presents with worsening dyspnea and worsening cough and green phlegm. Patient was evaluated by cardiology and pulmonary team. He was treated with IV Lasix. Also was treated with IV Solu- Medrol. Patient's symptoms improved. He is currently on 4 L oxygen via nasal cannula. No dyspnea no chest pain. Lasix switched to small oral dose and prednisone switched to oral dose with taper upon discharge Repeat CT scan of the chest done today and reviewed showing no significant abnormality. Also it was reviewed by pulmonary team. Both pulmonary team and cardiology team cleared her for discharge with recommendation to follow-up with Dr. Weinstein next week for pulmonary function test. If further workup negative patient's symptom most likely related to his debility and morbid obesity. Patient informs with full workup results as above and the management plan and he agrees Patient was found stable and can be discharged home in guarded prognosis however he needs follow-up as an outpatient. Patient was instructed to follow up with PCP Dr. Curtis within one week and patient agrees Patient was instructed to follow-up with interactive graphic designer Dr. Schafer and sales and service engineer Dr. Weinstein in 1 week after discharge and he agrees Physical exam Gen: patient is a AAOx3, no distress CVS: S1-S2, RRR, no murmur Lungs: B/L CTA, no wheezing Abdomen: soft, no distention, no tenderness, positive bowel sounds Extremity: no leg edema or induration Time spent more than 35 minutes Plan - Discharge Summary New Discharge Prescriptions: New Furosemide [Lasix] 20 mg PO DAILY #30 tab predniSONE 10 mg PO DIRECTED #40 tab Continue Ipratropium-Albuterol Nebulize [Duoneb 0.5 mg-3 mg/3 ml Soln] 3 ml INHALATION RT-QID Discharge Medication List Ipratropium-Albuterol Nebulize [Duoneb 0.5 mg-3 mg/3 ml Soln] 3 ml INHALATION RT-QID 07/25/24 [History] Furosemide [Lasix] 20 mg PO DAILY #30 tab 07/28/24 [Rx] predniSONE 10 mg PO DIRECTED #40 tab 07/28/24 [Rx] Follow up Appointment(s)/Referral(s): Arpan Rojas MD [STAFF PHYSICIAN] - 1 Week (please call and make follow up appointment ) Sebastian Curtis DO [Primary Care Provider] - 1-2 days Sukhjinder Weinstein DO [Doctor of Osteopathic Medicine] - 08/03/24 10:00 am Patient Instructions/Handouts: Dyspnea (GEN), Bronchospasm (GEN) Activity/Diet/Wound Care/Special Instructions: Heart healthy diet Activity is restricted till you see your doctor Continue with 4 L of oxygen per minute via nasal cannula at home Discharge Disposition: HOME SELF-CARE
[2024-07-29] MEDS ORDERED: FAMOTIDINE 20 MG TAB PO SCH (09:00)
== END 2024-07-28 16:15 | disposition home or self-care (01) ==
LOC: EC 15:47 → 6NMEDSUR 18:36
PROVIDERS: ADMIT Hospitalist; ATTEND Hospitalist
DX: I50.31 Acute diastolic (congestive) heart failure (principal); J96.21 Acute and chronic respiratory failure with hypoxia; J44.1 Chronic obstructive pulmonary disease with (acute) exacerbation; I27.20 Pulmonary hypertension, unspecified; I08.1 Rheumatic disorders of both mitral and tricuspid valves; R94.4 Abnormal results of kidney function studies; T50.2X5A Adverse effect of carbonic-anhydrase inhibitors, benzothiadiazides and other diuretics, initial encounter; I89.0 Lymphedema, not elsewhere classified; Z99.81 Dependence on supplemental oxygen; J98.4 Other disorders of lung; G47.33 Obstructive sleep apnea (adult) (pediatric); D64.9 Anemia, unspecified; E66.01 Morbid (severe) obesity due to excess calories; Z68.43 Body mass index [BMI] 50.0-59.9, adult; F32.A Depression, unspecified; F41.9 Anxiety disorder, unspecified; F17.200 Nicotine dependence, unspecified, uncomplicated; Z79.899 Other long term (current) drug therapy; Z88.0 Allergy status to penicillin; Z88.8 Allergy status to other drugs, medicaments and biological substances; Z11.52 Encounter for screening for COVID-19; Z11.59 Encounter for screening for other viral diseases; Z91.199 Patient's noncompliance with other medical treatment and regimen due to unspecified reason; Z87.01 Personal history of pneumonia (recurrent); Z87.828 Personal history of other (healed) physical injury and trauma; Z98.890 Other specified postprocedural states
CPT/HCPCS: 96376 ×4; 96372 ×4; 96374; 96375; 99285; 36415; 94640 ×6; 94760 ×2; 93005; 83880; 80053; 80048; 83605; 83735; 84484; 85025 ×2; 85610; 85730; 83036; 84145; 87636; 71046; 71250; G0378 ×4; J1644 ×3; J1940 ×2; J3490 ×3; J7512; J2919 ×3

== ENCOUNTER 2024-08-17 19:24 | Observation (INO) | payer MEDICARE ==
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
--- NOTE | 2024-08-17 20:39 | XR ---
EXAMINATION TYPE: XR chest 2V DATE OF EXAM: 08/17/2024 8:26 PM COMPARISON: Multiple prior chest radiographs, most recently dated 07/25/2024. CLINICAL INDICATION: Male, 64 years old with history of shortness of breath; [facility] TECHNIQUE: XR chest 2V Frontal and lateral views of the chest. FINDINGS: Cardiomegaly and mild pulmonary vascular congestion. No sizable pleural effusion. Asymmetric elevation of the right hemidiaphragm. No pneumothorax. No acute osseous abnormality. IMPRESSION: Cardiomegaly and pulmonary vascular congestive changes. [facility], , 08/17/2024 8:37 PM
[2024-08-17 20:45] LABS: Influenza A Not Detected (Not Detectd); Influenza B Not Detected (Not Detectd); RSV Not Detected (Not Detectd)
[2024-08-17 20:59] LABS: Basophils # (A) 0.03 10*3/uL (0.00-0.10); Basophils % (A) 0.4 %; Eosinophils # (A) 0.39 10*3/uL (0.04-0.35); Eosinophils % (A) 5.7 %; HCT 31.1 % (39.6-50.0); HGB 9.4 g/dL (13.0-17.0); Lymphocytes # (A) 1.14 10*3/uL (0.90-5.00); Lymphocytes % (A) 16.6 %; MCH 25.2 pg (27.0-32.0); MCHC 30.2 g/dL (32.0-37.0); MCV 83.4 fL (80.0-97.0); Mean Platelet Volume 8.4 fL (9.5-12.2); Monocytes % (A) 5.8 %; Neutrophils # (A) 4.88 10*3/uL (1.80-7.70); Neutrophils % (A) 71.4 %; Platelet Count 195 10*3/uL (140-440); RBC 3.73 10*6/uL (4.40-5.60); RDW 17.5 % (11.5-14.5); WBC 6.85 10*3/uL (4.50-10.00)
[2024-08-17 21:18] LABS: AST 17 U/L (17-59); African American GFR (CKD) 69 (>60 ml/min/1.73 sqM); Albumin 3.2 g/dL (3.5-5.0); Anion Gap 3 mmol/L; Blood Urea Nitrogen 22 mg/dL (9-20); Calcium 8.8 mg/dL (8.4-10.2); Carbon Dioxide 36 mmol/L (22-30); Chloride 95 mmol/L (98-107); Glucose 100 mg/dL (74-99); Non-African American GFR(CKD) 59 (>60 ml/min/1.73 sqM); Sodium 134 mmol/L (137-145); Total Bilirubin 0.9 mg/dL (0.2-1.3); Total Protein 6.6 g/dL (6.3-8.2)
[2024-08-17 21:19] LABS: ALT 15 U/L (4-49); Alkaline Phosphatase 105 U/L (38-126)
[2024-08-17 21:25] LABS: INR 0.9 (<1.2); Partial Thromboplastin Time 24.8 sec (22.0-30.0); Prothrombin Time 10.5 sec (10.0-12.5)
[2024-08-17 21:26] LABS: NT-Pro-B-Type Natriuretic Pept 515 pg/mL
[2024-08-17] MEDS: IPRATROPIUM-ALBUTEROL 3 ML NEB INHALATION STA ×2 (21:33→23:10)
[2024-08-17] MEDS: methylPREDNISolone SOD SUCCI 125 MG/2 ML VIAL IV STA (23:07)
[2024-08-17] MEDS ORDERED: ACETAMINOPHEN TAB 325 MG TAB PO PRN (23:29)
[2024-08-17] MEDS ORDERED: HYDROcodone/APAP 5-325MG 1 EACH TAB PO PRN (23:29)
[2024-08-17] MEDS ORDERED: ONDANSETRON 4 MG/2 ML VIAL IVP PRN (23:29)
[2024-08-17] MEDS ORDERED: MORPHINE SULFATE 4 MG/ML SYRINGE IV PRN (23:29)
[2024-08-17] MEDS ORDERED: NALOXONE 0.4 MG/ML 1 ML VIAL IV PRN (23:29)
[2024-08-17] MEDS ORDERED: IPRATROPIUM-ALBUTEROL 3 ML NEB INHALATION PRN (23:31)
[2024-08-17] MEDS: methylPREDNISolone SOD SUCCI 125 MG/2 ML VIAL IV SCH (23:39)
--- NOTE | 2024-08-18 01:11 | CT ---
EXAM: CT Angiography Chest With Intravenous Contrast CLINICAL HISTORY: ITS.REASON CT Reason: chest pain, elevated D-dimer TECHNIQUE: Axial computed tomographic angiography images of the chest with intravenous contrast. CTDI is 25 mGy and DLP is 777.1 mGy-cm. This CT exam was performed using one or more of the following dose reduction techniques: automated exposure control, adjustment of the mA and/or kV according to patient size, and/or use of iterative reconstruction technique. MIP reconstructed images were created and reviewed. COMPARISON: No relevant prior studies available. FINDINGS: Pulmonary arteries: Unremarkable. No pulmonary embolism. Aorta: No acute findings. No thoracic aortic aneurysm. Lungs: Mild hazy ground-glass attenuation, likely secondary to expiration/air trapping. No mass. Pleural space: Unremarkable. No focal infiltrate, pleural effusion, or pneumothorax. Heart: Unremarkable. No cardiomegaly. No significant pericardial effusion. No evidence of RV dysfunction. Bones/joints: No acute fracture. No dislocation. Soft tissues: Unremarkable. Lymph nodes: Unremarkable. No enlarged lymph nodes. Liver: Hepatic steatosis. Gallbladder and bile ducts: Cholecystectomy. IMPRESSION: No pulmonary embolism.
[2024-08-18] MEDS: AZITHROMYCIN 500 MG TAB PO SCH (02:42)
[2024-08-18] MEDS ORDERED: IPRATROPIUM-ALBUTEROL 3 ML NEB INHALATION PRN (03:55)
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
[2024-08-18] MEDS: IPRATROPIUM-ALBUTEROL 3 ML NEB INHALATION SCH (08:11)
[2024-08-18] MEDS: FUROSEMIDE 10 MG/ML 4 ML VIAL IV SCH (09:48)
[2024-08-18] MEDS: LORATADINE 10 MG TAB PO SCH (11:10)
[2024-08-18] MEDS: DEXTROSE 5% IN WATER 100 ML with AMIODARONE 150 MG IV ONE (12:04)
[2024-08-18] MEDS: AMIODARONE 360 MG in DEXTROSE 5% IN WATER 200 ML IV ONE (12:20)
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
[2024-08-18] MEDS ORDERED: Magnesium Replacement Protocol 1 EACH MISC MISCELLANE PRN (15:36)
[2024-08-18] MEDS ORDERED: AMIODARONE 450 MG in DEXTROSE 5% IN WATER 250 ML IV SCH (17:30)
[2024-08-18] MEDS: ALPRAZolam 0.5 MG TAB PO PRN (20:20)
[2024-08-19 04:13] LABS: Glucose,Whole Blood 160 mg/dL (70-110)
[2024-08-19 06:00] LABS: HCT 31.6 % (39.6-50.0); HGB 9.4 g/dL (13.0-17.0); Lymphocytes # (A) 0.61 10*3/uL (0.90-5.00); Lymphocytes % (A) 8.7 %; MCH 24.9 pg (27.0-32.0); MCHC 29.7 g/dL (32.0-37.0); MCV 83.8 fL (80.0-97.0); Mean Platelet Volume 8.9 fL (9.5-12.2); Monocytes # (A) 0.19 10*3/uL (0.20-1.00); Monocytes % (A) 2.7 %; Neutrophils # (A) 6.22 10*3/uL (1.80-7.70); Neutrophils % (A) 88.3 %; Platelet Count 236 10*3/uL (140-440); RBC 3.77 10*6/uL (4.40-5.60); RDW 16.9 % (11.5-14.5); WBC 7.04 10*3/uL (4.50-10.00)
[2024-08-19 06:44] LABS: African American GFR (CKD) 75 (>60 ml/min/1.73 sqM); Anion Gap 7 mmol/L; Blood Urea Nitrogen 31 mg/dL (9-20); Calcium 9.5 mg/dL (8.4-10.2); Carbon Dioxide 30 mmol/L (22-30); Chloride 98 mmol/L (98-107); Glucose 139 mg/dL (74-99); Magnesium 2.1 mg/dL (1.6-2.3); Non-African American GFR(CKD) 65 (>60 ml/min/1.73 sqM); Potassium 4.2 mmol/L (3.5-5.1); Sodium 135 mmol/L (137-145)
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
[2024-08-19 12:39] VITALS: BMI 56.5
[2024-08-19] MEDS: METOPROLOL TARTRATE 25 MG TAB PO SCH (13:44)
[2024-08-19] MEDS: ASPIRIN 325 MG TAB PO SCH (13:45)
[2024-08-20] MEDS ORDERED: CAFFEINE CITRATE 60 MG/3 ML VIAL IV PRN (06:00)
[2024-08-20] MEDS ORDERED: AMINOPHYLLINE 500 MG/20 ML VIAL IV PRN (06:00)
[2024-08-20] MEDS ORDERED: REGADENOSON 0.4 MG/5 ML SYRINGE IV PRN (06:00)
[2024-08-20] MEDS ORDERED: REGADENOSON 0.4 MG/5 ML SYRINGE IV ONE (08:00)
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
--- NOTE | 2024-08-20 11:32 | NM ---
EXAMINATION TYPE: NM stress lexiscan cardiolite DATE OF EXAM: 08/20/2024 COMPARISON: NONE CLINICAL INDICATION: Male, 64 years old with history of CP; TECHNIQUE: After the intravenous administration of 10.65 mCi Tc 99m Sestamibi - Cardiolite resting S PECT images acquired 70 minutes post injection. The patient received 0.4mg Lexiscan, 26.7 mCi Tc 99m Sestamibi - Stress images obtained [address] injection FINDINGS: Review of stress and rest SPECT images demonstrates no distinct perfusion abnormality. Gated analysi s shows normal wall motion with borderline diminished estimated left ventricular ejection fraction of 54 %. TID is abnormally elevated at 1.29. IMPRESSION: 1. Borderline diminished LVEF estimated at 54%. 2. While there is no suspicious focal reversibility, the transient ischemic dilatation ratio is abnor inna elevated at 1.29. This can be seen in the setting of multivessel, global inducible ischemia. Fu rther clinical correlation recommended. [facility], , 08/20/2024 11:30 AM
--- NOTE | 2024-08-20 11:42 | P.PN ---
Subjective HISTORY OF PRESENT ILLNESS: This is a 64-year-old male with a past medical history significant for morbid obesity and obstructive sleep apnea. patient follows in the office with Dr. Rojas. We have been asked to see the patient in consultation for atrial fibrillation. Patient examined at the bedside. Patient reports he has been having chest pains with coughing. He also reports shortness of breath that has been ongoing for the past few months. He did see Dr. Rojas recently in the office who ordered VQ scan and dobutamine stress echo. Patient was found to be in A- fib with RVR yesterday. He denied having any palpitations. He denies any his tory of atrial fibrillation. DIAGNOSTICS: - EKG reveals sinus mechanism with no signs of acute ischemia. - Chest xray cardiomegaly and pulmonary vascular congestion. -Chest CTA: Negative for pulmonary embolism - Laboratory data: WBC 7.04. Hemoglobin 9.4. Platelet count 236. Sodium 135. Potassium 4.2. BUN 31. Creatinine 1.17. - Current home cardiac medications include Lasix 20 mg daily. - Most recent echocardiogram obtained in 07/06/2024 revealing ejection fraction 55 to 60%, moderate pulmonary hypertension, mild MR, mild TR - Cardiac catheterization history: March 2019 which was negative for ischemia 08/20 Patient seen and examined. Patient denies any further chest pain. Still short of breath. His shortness of breath is not necessarily related to his atrial fibrillation and remains in sinus rhythm on telemetry. Underwent Lexiscan stress test which shows normal perfusion and mention of possible 3 times daily however examined the images and no visual 3 times daily. PHYSICAL EXAM: VITAL SIGNS: Reviewed. GENERAL: Well-developed in no acute distress. HEENT: Head is normocephalic. Pupils are equal, round. Sclerae anicteric. Mucous membranes of the mouth are moist. Neck supple. No JVD or thyromegaly LUNGS: Respirations even and unlabored. Lungs essentially clear to auscultation bilaterally. HEART: Regular rate and rhythm. S1 and S2 heard. ABDOMEN: Soft. Nondistended. Nontender. EXTREMITIES: Normal range of motion. No clubbing or cyanosis. Peripheral pulses intact. Bilateral lower extremity edema, chronic per patient NEUROLOGIC: Awake and alert. Oriented x 3. ASSESSMENT: Shortness of breath Chest pain New onset atrial fibrillation with RVR Status post bronchoscopy 07/08/2024, cytology revealed acute inflammatory cells with microbiologist and reactive bronchial lining cells. No malignant cells identified History of obstructive sleep apnea Moderate pulmonary hypertension Morbid obesity: BMI 56.6 Chronic lower extremity edema/lymphedema PLAN: [id number] score of 1 due to his age. Add aspirin 325 mg daily. Continue metoprolol 25 mg twice a day Patient with continued dyspnea and not necessarily related to his A-fib. He is in normal sinus rhythm and still dyspneic. Appears fairly asymptomatic from the A-fib. Therefore workup of other reasons for his dyspnea. Stress test unrevealing and does not appear in heart failure. Stable for discharge home from cardiology standpoint with outpatient follow-up. Objective - Vital Signs Vital signs: Vital Signs Temp 97.5 F L 08/20/24 08:00 Pulse 80 08/20/24 11:35 Resp 18 08/20/24 08:00 BP 120/69 08/20/24 08:00 Pulse Ox 98 08/20/24 08:00 FiO2 Intake & Output 08/19/24 08/20/24 08/20/24 18:59 06:59 18:59 Intake Total 500 540 10 Output Total 350 Balance 500 190 10 Weight 154.221 kg 153.4 kg Intake: IV 10 Invasive Line 1 10 Oral 500 540 Output: Urine 350 Other: Voiding Method Toilet Toilet Toilet # Voids 1 # Bowel Movements 0 - Labs CBC & Chem 7: 08/19/24 05:48 08/19/24 05:48 Labs: Microbiology - Last 24 Hours (Table) 08/18/24 08:15 Gram Stain - Final Sputum Sputum Culture - Final
--- NOTE | 2024-08-20 12:24 | CA ---
Lexiscan Nuclear Stress Test Report Name: Sukhjinder Hutchison Exam Date: 08/20/2024 09:16 Exam Location: [place] Stress Ht (in): 65 Wt (lb): 340 BSA: 2.48 Ordering Phys: Elisabeth Domingo Referring Phys: [id number], Technologist: Pawel Johnson Age: 64 Gender: M : 1960 Procedure CPT: Indications: Reflex order-Stress test ICD-10 Codes: Patient History: SAMUEL Medications: Meds past 24 hrs: Pretest Chest Pain: STRESS TEST Lexiscan Protocol Exercise Duration (min:sec): 01:[address] Depressions (mm): Angina Score: Murray Score: Resting HR (bpm): 77 Peak HR (bpm): 96 Resting BP (mmHg): 109 / 79 Peak BP (mmHg): 130 / 50 MPHR: 155 Target HR: 132 % MPHR: 62 METS: 1.0 Total Dose: Peak Dose: Atropine: Double Product: 85106 BP Response: Stress Termination: INFUSION COMPLETE Stress Symptoms: NO SYMPTOMS Stress Summary: ECG ANALYSIS Resting ECG: Stress ECG: CONCLUSIONS RESTING EKG: [Normal sinus rhythm, normal EKG] Patient recieved IV infusion of Lexiscan 0.4mg and at peak infusion STRESS EKG showed: [No significant ST-T wave changes diagnostic for ischemia by ST segment analysis] ARRYTHMIAS: [No ectopic rhythms or sustained arrythmias] CONCLUSION: 1. Normal hemodynamic and clinical response to Lexiscan infusion. 2. Non-ischemic EKG response to lexiscan infusion Please refer to the nuclear imaging portion of this stress test for complete interpretation of the study. Dr Kvng Centeno (Electronically Signed) Final Date: 20 August 2024 12:23
[2024-08-20] MEDS: FAMOTIDINE 20 MG TAB PO SCH (16:03)
[2024-08-21 10:25] VITALS: TEMP 97.5
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
[2024-08-21] MEDS: SULFAMETHOX-TMP 800-160MG 1 EACH TAB PO SCH (11:22)
[2024-08-21] MEDS: ENOXAPARIN 40 MG/0.4 ML SYRINGE SQ SCH (11:22)
--- NOTE | 2024-08-21 12:34 | P.PN ---
Subjective Progress Note Date: 08/21/24 HISTORY OF PRESENT ILLNESS: This is a 64-year-old male with a past medical history significant for morbid obesity and obstructive sleep apnea. patient follows in the office with Dr. Rojas. We have been asked to see the patient in consultation for atrial fibrillation. Patient examined at the bedside. Patient reports he has been having chest pains with coughing. He also reports shortness of breath that has been ongoing for the past few months. He did see Dr. Rojas recently in the office who ordered VQ scan and dobutamine stress echo. Patient was found to be in A- fib with RVR yesterday. He denied having any palpitations. He denies any history of atrial fibrillation. DIAGNOSTICS: - EKG reveals sinus mechanism with no signs of acute ischemia. - Chest xray cardiomegaly and pulmonary vascular congestion. -Chest CTA: Negative for pulmonary embolism - Laboratory data: WBC 7.04. Hemoglobin 9.4. Platelet count 236. Sodium 135. Potassium 4.2. BUN 31. Creatinine 1.17. - Current home cardiac medications include Lasix 20 mg daily. - Most recent echocardiogram obtained in 07/06/2024 revealing ejection fraction 55 to 60%, moderate pulmonary hypertension, mild MR, mild TR - Cardiac catheterization history: March 2019 which was negative for ischemia 08/20 Patient seen and examined. Patient denies any further chest pain. Still short of breath. His shortness of breath is not necessarily related to his atrial fibrillation and remains in sinus rhythm on telemetry. Underwent Lexiscan stre ss test which shows normal perfusion and mention of possible 3 times daily however examined the images and no visual 3 times daily. 08/21 patient reports shortness of breath is the same. He is on 2 L nasal cannula O2. Denies any chest pain or pressure. No dizziness. He remains in sinus rhythm on telemetry with heart rates controlled. PHYSICAL EXAM: VITAL SIGNS: Reviewed. GENERAL: Well-developed in no acute distress. HEENT: Head is normocephalic. Pupils are equal, round. Sclerae anicteric. Mucous membranes of the mouth are moist. Neck supple. No JVD or thyromegaly LUNGS: Respirations even and unlabored. Lungs essentially clear to auscultation bilaterally. HEART: Regular rate and rhythm. S1 and S2 heard. ABDOMEN: Soft. Nondistended. Nontender. EXTREMITIES: Normal range of motion. No clubbing or cyanosis. Peripheral pulses intact. Bilateral lower extremity edema, chronic per patient NEUROLOGIC: Awake and alert. Oriented x 3. ASSESSMENT: Shortness of breath Chest pain New onset atrial fibrillation with RVR Status post bronchoscopy 07/08/2024, cytology revealed acute inflammatory cells with microbiologist and reactive bronchial lining cells. No malignant cells identified History of obstructive sleep apnea Moderate pulmonary hypertension Morbid obesity: BMI 56.6 Chronic lower extremity edema/lymphedema PLAN: [id number] score of 1 due to his age. Continue aspirin 325 mg daily. Continue metoprolol 25 mg twice a day. Patient with continued dyspnea and not necessarily related to his A-fib. He remains in normal sinus rhythm and appears fairly asymptomatic from the A-fib. Therefore workup of other reasons for his dyspnea, pulmonology recommends follow-up with pulmonary at [facility]. Stress test unrevealing and does not appear in heart failure. Stable for discharge home from cardiology standpoint with outpatient follow-up. Cardiology to sign off please call with any questions or concerns. Patient seen and examined in rounds with Dr. Ho, plan of care agreed upon. Objective - Vital Signs Vital signs: Vital Signs Temp 97.8 F 08/20/24 20:00 Pulse 76 08/21/24 03:47 Resp 16 08/21/24 03:47 BP 108/69 08/21/24 03:47 Pulse Ox 98 08/21/24 03:47 FiO2 Intake & Output 08/20/24 08/20/24 08/21/24 06:59 18:59 06:59 Intake Total 278 205 7120 Output Total 350 Balance 567 300 3528 Weight 153.4 kg 152.6 kg Intake: IV 20 Invasive Line 1 20 Oral [phone] Output: Urine 350 Other: Voiding Method Toilet Toilet Toilet # Voids 1 1 # Bowel Movements 2 - Labs CBC & Chem 7: 08/19/24 05:48 08/19/24 05:48 Labs: Microbiology - Last 24 Hours (Table) 08/18/24 08:15 Gram Stain - Final Sputum Sputum Culture - Final
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
[2024-08-21 15:26] VITALS: BP 94/63; PULSE 66; RESP 16
== END 2024-08-21 18:30 | disposition home or self-care (01) ==
LOC: EC 19:24 → 6NMEDSUR 23:32 → 1SOBS 23:47 → 3SCARD 08-18 18:16
PROVIDERS: ADMIT Family Medicine; ATTEND Family Medicine
DX: J96.21 Acute and chronic respiratory failure with hypoxia (principal); J44.1 Chronic obstructive pulmonary disease with (acute) exacerbation; I48.0 Paroxysmal atrial fibrillation; I50.32 Chronic diastolic (congestive) heart failure; I27.20 Pulmonary hypertension, unspecified; E66.01 Morbid (severe) obesity due to excess calories; Z68.43 Body mass index [BMI] 50.0-59.9, adult; J98.4 Other disorders of lung; G47.33 Obstructive sleep apnea (adult) (pediatric); Z91.199 Patient's noncompliance with other medical treatment and regimen due to unspecified reason; N18.2 Chronic kidney disease, stage 2 (mild); D64.9 Anemia, unspecified; R16.1 Splenomegaly, not elsewhere classified; I89.0 Lymphedema, not elsewhere classified; Z79.52 Long term (current) use of systemic steroids; Z79.899 Other long term (current) drug therapy; Z88.0 Allergy status to penicillin; Z88.8 Allergy status to other drugs, medicaments and biological substances; R79.89 Other specified abnormal findings of blood chemistry; Z11.52 Encounter for screening for COVID-19; Z11.59 Encounter for screening for other viral diseases; Z87.828 Personal history of other (healed) physical injury and trauma
CPT/HCPCS: 96376 ×4; 96372; 96365; 96375 ×2; 99285; 36415; 94640 ×10; 94760 ×2; 93005; 93017; 85379; 83880; 80053; 80048; 83735 ×2; 84484; 85025 ×2; 85610; 85730; 87070; 87205; 84145; 87636; 71046; 71275; 78452; G0378 ×5; A9500; J0282 ×2; J1650; J2785; Q9967; J2919 ×2; J1938 ×4

== ENCOUNTER 2024-08-31 19:50 | Inpatient (IN) | payer MEDICARE ==
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
[2024-08-31] MEDS: IPRATROPIUM-ALBUTEROL 3 ML NEB INHALATION STA (22:23)
[2024-08-31 22:25] LABS: Basophils # (A) 0.06 10*3/uL (0.00-0.10); Basophils % (A) 0.8 %; Eosinophils # (A) 0.12 10*3/uL (0.04-0.35); Eosinophils % (A) 1.6 %; HCT 28.8 % (39.6-50.0); HGB 8.6 g/dL (13.0-17.0); Lymphocytes # (A) 1.39 10*3/uL (0.90-5.00); Lymphocytes % (A) 18.1 %; MCH 25.3 pg (27.0-32.0); MCHC 29.9 g/dL (32.0-37.0); MCV 84.7 fL (80.0-97.0); Mean Platelet Volume 8.1 fL (9.5-12.2); Monocytes # (A) 0.39 10*3/uL (0.20-1.00); Monocytes % (A) 5.1 %; Neutrophils # (A) 5.67 10*3/uL (1.80-7.70); Neutrophils % (A) 73.7 %; Platelet Count 272 10*3/uL (140-440); RDW 17.2 % (11.5-14.5); WBC 7.68 10*3/uL (4.50-10.00)
[2024-08-31 22:37] LABS: ALT 12 U/L (4-49); AST 21 U/L (17-59); African American GFR (CKD) 67 (>60 ml/min/1.73 sqM); Albumin 3.2 g/dL (3.5-5.0); Alkaline Phosphatase 96 U/L (38-126); Anion Gap 8 mmol/L; Blood Urea Nitrogen 22 mg/dL (9-20); Calcium 9.4 mg/dL (8.4-10.2); Carbon Dioxide 30 mmol/L (22-30); Chloride 99 mmol/L (98-107); Glucose 92 mg/dL (74-99); Magnesium 1.8 mg/dL (1.6-2.3); Non-African American GFR(CKD) 58 (>60 ml/min/1.73 sqM); Potassium 3.8 mmol/L (3.5-5.1); Sodium 137 mmol/L (137-145); Total Bilirubin 0.6 mg/dL (0.2-1.3); Total Protein 6.9 g/dL (6.3-8.2)
[2024-08-31 22:39] LABS: Partial Thromboplastin Time 23.4 sec (22.0-30.0); Prothrombin Time 10.8 sec (10.0-12.5)
[2024-08-31 22:46] LABS: NT-Pro-B-Type Natriuretic Pept 1000 pg/mL
[2024-08-31] MEDS: FUROSEMIDE 10 MG/ML 10 ML VIAL IV STA (23:23)
[2024-08-31 23:43] LABS: Influenza A Not Detected (Not Detectd); Influenza B Not Detected (Not Detectd); RSV Not Detected (Not Detectd)
[2024-09-01] MEDS: METOPROLOL TARTRATE 25 MG TAB PO SCH (00:24)
--- NOTE | 2024-09-01 01:01 | XR ---
EXAM: XR Chest, 2 Views CLINICAL HISTORY: ITS.REASON XR Reason: difficulty breathing TECHNIQUE: Frontal and lateral views of the chest. COMPARISON: No relevant prior studies available. FINDINGS: Lungs: Unremarkable. No consolidation. Pleural space: Unremarkable. No pneumothorax. Heart: There is cardiomegaly. Mediastinum: Unremarkable. Bones/joints: Unremarkable. IMPRESSION: No consolidation.
[2024-09-01] MEDS: FUROSEMIDE 10 MG/ML 2 ML VIAL IV STA (05:23)
[2024-09-01] MEDS: ALBUTEROL NEBULIZED 2.5 MG/3 ML INHALATION PRN ×2 (06:21→12:16)
[2024-09-01 07:38] VITALS: RESP 20
[2024-09-01] MEDS: FUROSEMIDE 10 MG/ML 4 ML VIAL IV SCH (09:14)
[2024-09-01] MEDS: ASPIRIN 325 MG TAB PO SCH (09:14)
[2024-09-01] MEDS: PANTOPRAZOLE 40 MG/10 ML VIAL IVP SCH (09:14)
[2024-09-01] MEDS: ENOXAPARIN 60 MG/0.6 ML SYRINGE SQ SCH (09:14)
[2024-09-01] MEDS ORDERED: NITROGLYCERIN SL TABS 0.4 MG TAB SUBLINGUAL PRN (11:48)
[2024-09-01] MEDS ORDERED: ALPRAZolam 0.25 MG TAB PO PRN (11:48)
[2024-09-01] MEDS ORDERED: ALPRAZolam 0.5 MG TAB PO PRN (11:48)
[2024-09-01] MEDS: ASPIRIN 325 MG TAB PO STA (12:12)
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
[2024-09-01] MEDS: EMPTY BAG 1 BAG with SODIUM CHLORIDE 0.9% 1,000 ML IV ONE (12:48)
[2024-09-01] MEDS: ATORVASTATIN 80 MG TAB PO STA (12:48)
[2024-09-01] MEDS: IV FLUID CONTINUATION 1,000 ML IV ONE (13:34)
[2024-09-01] MEDS: HEPARIN SODIUM,PORCINE (1 ML) 2,500 UNIT in SODIUM CHLORIDE 0.9% 250 ML IRRIGATION ONE (13:35)
[2024-09-01] MEDS: HEPARIN SODIUM (1,000 UNIT/ML) 1,000 UNIT in SODIUM CHLORIDE 0.9% 1,000 ML IRRIGATION ONE (13:35)
[2024-09-01] MEDS: MIDAZOLAM 2 MG/2 ML VIAL IVP ONE (13:49)
[2024-09-01] MEDS: LIDOCAINE 1% INJ 10MG/ML (20 ML MDV) SQ ONE ×2 (14:04→14:15)
[2024-09-01] MEDS: MORPHINE SULFATE 4 MG/ML SYRINGE IVP ONE (14:08)
[2024-09-01] MEDS: IOPAMIDOL-370 200ML BTL INJ ONE (14:22)
--- NOTE | 2024-09-01 14:25 | P.PCN ---
Date of Procedure: 09/01/24 Operative Findings: CARDIAC CATHETERIZATION PERFORMING PHYSICIAN: Arpan Rojas MD, RPVI PROCEDURE PERFORMED: 1. Selective right and left coronary angiogram 2. Left heart catheterization 3. Ultrasound-guided access of the right common femoral artery and selective right common femoral artery angiogram INDICATION: Chest discomfort concerning for unstable angina COMPLICATION: None APPROACH: Right common femoral artery LEVEL OF SEDATION: Moderate with sedation in length of 18 minutes PROCEDURE DESCRIPTION: After obtaining an informed consent, the patient was brought to cardiac agricultural labor camp manager. Local anesthesia was performed using lidocaine subcutaneously. The right common femoral artery was cannulated using Seldinger technique, the guidewire passed easily, following that we advanced a 6 Maltese sheath dilator assembly, the wire and dilator were removed and sheath was flushed. Selective right and left coronary angiogram using a 6-Maltese JR4 and JL catheters. Following that we did left heart catheterization using 6-Maltese pigtail catheter. The procedure was completed there was no complication. SELECTIVE CORONARY ANGIOGRAM: The right coronary artery: Large caliber vessel and a dominant vessel appears to be angiographically normal distally bifurcates into PDA and PLV branch Left main: Is angiographically normal The left circumflex: Large caliber vessel nondominant vessel also appears to be angiographically normal with no evidence of high-grade stenosis The left anterior descending artery: Large-caliber vessel appears to be angiographically normal and diagonal branch also appears to be normal HEMODYNAMICS: The LVEDP was about 16 mmHg with no gradient was identified across aortic valve CONCLUSION: 1. Normal coronary angiogram 2. Normal left-sided filling pressure POSTPROCEDURE MANAGEMENT: Medical treatment
[2024-09-01] MEDS ORDERED: RX INFO: IV CONTRAST WAS GIVEN 1 EACH MISC MISCELLANE PRN (15:03)
[2024-09-01 15:58] VITALS: TEMP 97.9
[2024-09-01 18:01] VITALS: BMI 56.4
[2024-09-01 19:40] VITALS: BP 93/60
[2024-09-01] MEDS: IPRATROPIUM-ALBUTEROL 3 ML NEB INHALATION SCH (19:46)
[2024-09-01 19:57] VITALS: PULSE 88
[2024-09-02] MEDS ORDERED: HEPARIN SODIUM,PORCINE 10,000 UNIT in SODIUM CHLORIDE 0.9% 1,000 ML IRRIGATION PRN (07:00)
[2024-09-02] MEDS ORDERED: HEPARIN SODIUM,PORCINE (1 ML) 2,500 UNIT in SODIUM CHLORIDE 0.9% 250 ML IRRIGATION PRN (07:00)
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
== END 2024-09-01 22:53 | disposition home or self-care (01) | DRG 287 ==
LOC: EC 19:50 → 6NMEDSUR 23:38 → OBSVTOIN 23:39 → 6NMEDSUR 09-01 00:57
PROVIDERS: ADMIT Family Medicine; ATTEND Family Medicine
PROC: B2111ZZ Fluoroscopy of Multiple Coronary Arteries using Low Osmolar Contrast (ICD-10-PCS; principal; 2024-09-01 15:05)
PROC: 4A023N7 Measurement of Cardiac Sampling and Pressure, Left Heart, Percutaneous Approach (ICD-10-PCS; principal; 2024-09-01 15:05)
DX: I50.33 Acute on chronic diastolic (congestive) heart failure (principal); I27.20 Pulmonary hypertension, unspecified; D63.1 Anemia in chronic kidney disease; Z99.81 Dependence on supplemental oxygen; Z68.43 Body mass index [BMI] 50.0-59.9, adult; J44.9 Chronic obstructive pulmonary disease, unspecified; F32.A Depression, unspecified; J96.11 Chronic respiratory failure with hypoxia; I48.0 Paroxysmal atrial fibrillation; E66.01 Morbid (severe) obesity due to excess calories; F41.9 Anxiety disorder, unspecified; G47.33 Obstructive sleep apnea (adult) (pediatric); N18.2 Chronic kidney disease, stage 2 (mild); I89.0 Lymphedema, not elsewhere classified; J98.4 Other disorders of lung; Z91.199 Patient's noncompliance with other medical treatment and regimen due to unspecified reason; Z79.82 Long term (current) use of aspirin; Z79.899 Other long term (current) drug therapy; Z71.3 Dietary counseling and surveillance; Z87.891 Personal history of nicotine dependence; M21.372 Foot drop, left foot; Z86.14 Personal history of Methicillin resistant Staphylococcus aureus infection; Z88.0 Allergy status to penicillin
CPT/HCPCS: 36415; 71046; 80053; 83735; 83880; 84484; 85025; 85610; 85730; 87636; 93005; 93458; 94640; 96374; 99285